=== PATIENT | male | born 1960 | race African-American/Black ===

== ENCOUNTER 2018-01-09 10:17 | Emergency (ER) | payer MEDICARE, MEDICAID ==
[2018-01-09] MEDS ORDERED: NS 0.9% 1000 ML* 1,000 ML IV ONE (10:26)
--- NOTE | 2018-01-09 10:41 | ED ---
Complex/Multi-Sys Presentation - HPI Summary HPI Summary: A 57 y/o male JOCELIN presents to [facility] c/o low blood sugar. As per triage, "patient had a low blood sugar this morning in which his right arm was not working. EMS arrived and found the sugar to be 51 and gave sugar for this. pt arrives alert and oriented without deficit. pt is on precautions as he states his apartment is infested with beg bugs, cockroaches and rats. He is trying to find new housing". According to EMS, the patient has a diabetic history along with a possible CVA history dating back to the . They stated that in the midst of him eating his meal, he was very confused and heated his dinner up 3 times. Additionally, somehow, he got out of bed and ended up laying on the floor. He was yelling for help in which his neighbors heard him. EMS believes it looks like a stroke. Furthermore, his blood sugar was 51, now it is 217. Patient has diabetes card. Body weight is 207.4. Allergic to shellfish, Sulfa drugs and Lipitor. Patient has appointment with Dr. Randle on February 14, 2018. SHx of lives in large apartment building/complex that is infested with beg bugs. - History Of Current Complaint Time Seen by Provider: 01/09/18 10:19 Hx Obtained From: Patient Onset/Duration: Sudden Onset, Lasting Hours Timing: Constant Severity Currently: None Location: Negative Aggravating Factor(s): NOTHING Alleviating Factor(s): NOTHING - Allergies/Home Medications Allergies/Adverse Reactions: Allergies Allergy/AdvReac Type Severity Reaction Status Date / Time atorvastatin [From Lipitor] Allergy Anaphylatic Verified 12/10/17 16:03 Shock iodine Allergy Anaphylatic Verified 12/10/17 16:03 Shock Sulfa (Sulfonamide Allergy Anaphylatic Verified 12/10/17 16:03 Antibiotics) Shock shellfish Allergy Anaphylatic Uncoded 12/10/17 16:03 Shock PMH/Surg Hx/FS Hx/Imm Hx Endocrine/Hematology History: Reports: Hx Diabetes, Hx Thyroid Disease - hypothyroidism Denies: Hx Systemic Lupus Erythematosus Cardiovascular History: Reports: Hx Hypertension Denies: Hx Congestive Heart Failure, Hx Pacemaker/ICD Respiratory History: Reports: Hx Asthma - juvenile Denies: Hx Chronic Obstructive Pulmonary Disease (COPD) GI History: Reports: Hx Gastrointestinal Bleed - Treated by DR Hartmann, Hx Ulcer - foot ulceration History: Reports: Hx Acute Renal Failure - 1997, Hx Dialysis - Dialysis 1987 for a few months, Hx Renal Disease - Renal Failure 1987 Musculoskeletal History: Reports: Hx Arthritis - shoulders amd hips, Other Musculoskeletal History - left foot drop dt dm Denies: Hx Rheumatoid Arthritis Sensory History: Reports: Hx Contacts or Glasses Denies: Hx Hearing Aid Opthamlomology History: Reports: Hx Contacts or Glasses Neurological History: Reports: Other Neuro Impairments/Disorders - dm neuropathy Psychiatric History: Reports: Hx Depression - 2000, Hx Post Traumatic Stress Disorder - 2000 Denies: Hx Panic Disorder - Cancer History Hx Chemotherapy: No - Surgical History Surgery Procedure, Year, and Place: History of cardiac cath 2010, Hx Anesthesia Reactions: No Infectious Disease History: Denies: Hx Hepatitis, Hx Human Immunodeficiency Virus (HIV) - would like to be tested - Family History Known Family History: Positive: Hypertension, Diabetes, Other - Lung cancern, uterine cancer - Social History Alcohol Use: Daily - 3-24 oz beers per day Substance Use Type: Reports: None Smoking Status (MU): Heavy Every Day Tobacco Smoker - 1 pack per day Review of Systems Negative: Fever Positive: Other - POSITIVE: Low-blood sugar Positive: Other - POSITIVE: Could not use right arm temporarily. All Other Systems Reviewed And Are Negative: Yes Physical Exam - Summary Physical Exam Summary: VITAL SIGNS: Reviewed. GENERAL: Patient is a well-developed and nourished male who is lying comfortable in the stretcher.Patient is not in any acute respiratory distress. HEAD AND FACE: No signs of trauma. No ecchymosis, hematomas or skull depressions. No sinus tenderness. EYES: PERRLA, EOMI x 2, No injected conjunctiva, no nystagmus. No photophobia. EARS: Hearing grossly intact. Ear canals and tympanic membranes are within normal limits. MOUTH: Oropharynx within normal limits. NECK: Supple, trachea is midline, no adenopathy, no JVD, no carotid bruit, no c- spine tenderness, neck with full ROM. No meningeal signs, no Kernig's or brudzinskis signs. CHEST: Symmetric, no tenderness at palpation LUNGS: Clear to auscultation bilaterally. No wheezing or crackles. CVS: Regular rate and rhythm, S1 and S2 present, no murmurs or gallops appreciated. ABDOMEN: Soft, non-tender. No signs of distention. No rebound no guarding, and no masses palpated. Bowel sounds are normal. EXTREMITIES: FROM in all major joints, no edema, no cyanosis or clubbing. NEURO: Alert and oriented x 3. No acute neurological deficits. Speech is normal and follows commands. SKIN: Dry and warm GCS: 15 Triage Information Reviewed: Yes Vital Signs Reviewed: Yes Diagnostics - Laboratory Result Diagrams: 01/09/18 11:09 01/09/18 11:09 Lab Statement: Any lab studies that have been ordered have been reviewed, and results considered in the medical decision making process. - Radiology CXR Radiology Interpretation Completed By: Radiologist - No radiographic evidence for acute cardiopulmonary abnormality on this portable chest x-ray. ED PHYSICIAN REVIEWED THIS RADIOLOGY REPORT. - EKG 1041 Cardiac Rate: NL - 79 BPM EKG Rhythm: Sinus Rhythm EKG Interpretation: NO ST ELEVATIONS Re-Evaluation - Re-Evaluation First Eval Re-Evaluation Time: 13:13 Change: Improved Comment: PATIENT IS FEELING MUCH BETTER. PATIENT IS ALERT AND ORIENTED X3. Complex Multi-Symp Course/Dx Assessment/Plan: This patient is a 57-year-old male who presents to the emergency department via ambulance with a chief complaint of having lethargy. Initially they noticed that the patient was confused and lethargic, a fingerstick was only 51 by EMS. EMS gave the patient dextrose and the fingerstick is now 218. The patient reports that he is feeling better. The patient is alert and oriented 3. He has no other complaints. This patient has past medical history significant for diabetes and he takes Glipizide, metformin and Januvia. He also has a history of CVA, hypothyroidism, insomnia, and asthma. Upon arrival to the emergency department the patient was placed in a cardiac cath lab manager, IV access was obtained and the patient was given IV fluids. EKG shows a sinus rhythm at [address] elevations. Has a normal RI and QTc intervals. Blood work without any significant abnormality, except for CPK of 382. pH is 7.38. Urinalysis is negative for UTI. In the ED course the patient was given IV fluids, the patient is eating and drinking and the last fingerstick is 183. The patient feels back to normal and his baseline. He is alert and oriented 3, has no neurological focal deficits. Patient will be discharged home with follow-up with primary care physician. I discussed all the findings and test results with the patient. Patient was instructed to return to the emergency room immediately if any of the symptoms return or worsens. Plan of care was discussed with the patient and understands and agrees. All questions were answered at patient satisfaction. There were no further complaints or concerns. Lung exam before discharge: CTA B/L. Good air exchange. No wheezing or crackles heard. CVS: S1 and S2 present. No murmurs appreciated. Patient is alert and oriented x 3. Patient is hemodynamically stable. Patient will be discharged home with follow up PCP in the next 2-3 days - Diagnoses Differential Diagnoses/HQI/PQRI: Metabolic Abnormality, Urinary Tract Infection , Other - Hypoglycemia, DKA, Hyperglycemia. Provider Diagnoses: Hypoglycemia Discharge - Sign-Out/Discharge Documenting (check all that apply): Patient Departure - DISCHARGE - Discharge Plan Condition: Stable Disposition: HOME Patient Education Materials: Hypoglycemia in a Person with Diabetes (ED), What to Do if Your Blood Sugar is Low (ED) Referrals: Kenrick Butler MD [Primary Care Provider] - 3 Days Additional Instructions: FOLLOW UP WITH PRIMARY CARE PHYSICIAN IN 2-3 DAYS. FOLLOW UP WITH YOUR PRIMARY CARE PROVIDER WITHIN ONE WEEK FOR HIGH BLOOD PRESSURE NOTED TODAY. RETURN TO ED FOR ANY NEW OR WORSENING SYMPTOMS. - Billing Disposition and Condition Condition: STABLE Disposition: Home - Attestation Statements Document Initiated by Sofya: Yes Documenting Scribe: Jesus Calvillo Provider For Whom Sofya is Documenting (Include Credential): Todd Robledo MD Scribe Attestation: Jesus Chow scribed for Todd Robledo MD on 01/10/18 at 1128. Scribe Documentation Reviewed: Yes Provider Attestation: The documentation as recorded by the Jesus loco accurately reflects the service I personally performed and the decisions made by me, Todd Robledo MD
[2018-01-09 11:19] LABS: ABS Basophils 0 10^3/ul (0-0.2); ABS Eosinophils 0 10^3/ul (0-0.6); ABS Lymphocytes 0.9 10^3/ul (1.0-4.8); ABS Monocytes 0.5 10^3/ul (0-0.8); ABS Neutrophils 5.4 10^3/ul (1.5-7.7); ABS Nucleated RBC 0 10^3/ul; Eosinophil % 0.3 % (0-6); Hematocrit 48 % (42-52); Hemoglobin 16.1 g/dl (14.0-18.0); Lymphocyte % 13.4 % (25-47); Mean Corpuscular HGB Conc 34 g/dl (31-36); Mean Corpuscular Hemoglobin 32 pg (27-31); Mean Corpuscular Volume 95 fL (80-94); Mean Platelet Volume 7.3 um3 (7.4-10.4); Nucleated Red Blood Cells % 0.1; Platelet Count 183 10^3/ul (150-450); Red Blood Count 5.02 10^6/ul (4.00-5.40); Red Cell Distribution Width 14 % (10.5-15); White Blood Count 6.8 10^3/ul (3.5-10.8)
[2018-01-09 11:26] LABS: INR 0.87 (0.77-1.02)
[2018-01-09 11:35] LABS: EGFR Non-African American 94.2 (>60)
--- NOTE | 2018-01-09 12:16 | RAD ---
INDICATION: Lethargy COMPARISON: Most recent comparison chest x-ray is dated April 23, 1999 and TECHNIQUE: Single AP portable view of the chest was obtained. FINDINGS: Image quality is compromised due to the relative inferiority of a portable chest x-ray. The heart and mediastinum exhibit normal size and contour. The lungs are grossly clear. There is blunting of the right costophrenic angle unchanged from the previous chest x-ray. Visualized bones are normal for the patient's age. IMPRESSION: No radiographic evidence for acute cardiopulmonary abnormality on this portable chest x-ray.
[2018-01-09 12:17] LABS: Urine Appearance Clear; Urine Blood 1+ (Negative); Urine Color Yellow; Urine Ketones Negative (Negative); Urine Protein 1+(30 mg/dL) (Negative); Urine Red Blood Cell 1+(3-5/hpf) (Absent); Urine Specific Gravity 1.013 (1.010-1.030); Urine Urobilinogen Negative (Negative); Urine White Blood Cell Trace(0-5/hpf) (Absent)
[2018-01-09 14:06] VITALS: BP 157/92
== END 2018-01-09 14:58 | disposition home or self-care (01) ==
LOC: ED 10:17
DX: E11.649 Type 2 diabetes mellitus with hypoglycemia without coma (principal); I10 Essential (primary) hypertension; F17.210 Nicotine dependence, cigarettes, uncomplicated
CPT/HCPCS: 36415; 71045; 80053; 80307; 80320; 81003; 81015; 82550; 82803; 83605; 83735; 84484; 85025; 85610; 85730; 86140; 87086; 93005; 99284; G0480

== ENCOUNTER 2018-03-20 06:28 | Inpatient (IN) | payer MEDICARE, MEDICAID ==
--- NOTE | 2018-03-20 06:33 | ED ---
HPI Chest Pain - HPI Summary HPI Summary: Pt. is a 58 y.o male who was transferred from [facility] for elevated troponin. Pt. apparently has a seafood allergy and was given a sandwich in [facility] and had an allergic reaction. Pt. was reportedly given PO benadryl, pepcid and decadron and transferred for admission for elevated troponin. No report was provided by EMS in transportation. Pt. was not given epi. When pt. arrived to our ED he had significant edema to posterior pharynx and was stridorous and struggling to breath. History limited at this time secondary to pt.'s condition. Symptoms are severe in severity. No current modifying factors. - History of Current Complaint Time Seen by Provider: 03/20/18 06:31 Hx Obtained From: Patient, Medical Records - Allergy/Home Medications Allergies/Adverse Reactions: Allergies Allergy/AdvReac Type Severity Reaction Status Date / Time atorvastatin [From Lipitor] Allergy Anaphylatic Verified 12/10/17 16:03 Shock iodine Allergy Anaphylatic Verified 12/10/17 16:03 Shock Sulfa (Sulfonamide Allergy Anaphylatic Verified 12/10/17 16:03 Antibiotics) Shock shellfish Allergy Anaphylatic Uncoded 12/10/17 16:03 Shock PMH/Surg Hx/FS Hx/Imm Hx Previously Healthy: Yes Endocrine/Hematology History: Reports: Hx Diabetes, Hx Thyroid Disease - hypothyroidism Denies: Hx Systemic Lupus Erythematosus Cardiovascular History: Reports: Hx Hypertension Denies: Hx Congestive Heart Failure, Hx Pacemaker/ICD Respiratory History: Reports: Hx Asthma - juvenile Denies: Hx Chronic Obstructive Pulmonary Disease (COPD) GI History: Reports: Hx Gastrointestinal Bleed - Treated by DR Hartmann, Hx Ulcer - foot ulceration History: Reports: Hx Acute Renal Failure - 1997, Hx Dialysis - Dialysis 1987 for a few months, Hx Renal Disease - Renal Failure 1987 Musculoskeletal History: Reports: Hx Arthritis - shoulders amd hips, Other Musculoskeletal History - left foot drop dt dm Denies: Hx Rheumatoid Arthritis Sensory History: Reports: Hx Contacts or Glasses Denies: Hx Hearing Aid Opthamlomology History: Reports: Hx Contacts or Glasses Neurological History: Reports: Other Neuro Impairments/Disorders - dm neuropathy Psychiatric History: Reports: Hx Depression - 2000, Hx Post Traumatic Stress Disorder - 2000 Denies: Hx Panic Disorder - Cancer History Hx Chemotherapy: No - Surgical History Surgery Procedure, Year, and Place: History of cardiac cath 2011, Hx Anesthesia Reactions: No Infectious Disease History: Denies: Hx Hepatitis, Hx Human Immunodeficiency Virus (HIV) - would like to be tested - Family History Known Family History: Positive: Hypertension, Diabetes, Other - Lung cancern, uterine cancer - Social History Occupation: Disabled Lives: With Family Alcohol Use: Daily Alcohol Amount: three 24 ounce beers Substance Use Type: Reports: None Smoking Status (MU): Heavy Every Day Tobacco Smoker Review of Systems Positive: Other - throat swelling Positive: Shortness Of Breath All Other Systems Reviewed And Are Negative: Yes Physical Exam Triage Information Reviewed: Yes Vital Signs Reviewed: Yes Appearance: Positive: Ill-Appearing - Pt. sitting up in bed, voice is raspy, difficulty breathing Skin: Positive: Warm, Dry Head/Face: Positive: Normal Head/Face Inspection Eyes: Positive: Normal, EOMI ENT: Positive: Other - Oral pharynx is significantly edematous Neck: Positive: Supple Respiratory/Lung Sounds: Positive: Other - Mild diffuse wheeze Cardiovascular: Positive: RRR Neurological: Positive: Normal, CN Intact II-III Psychiatric: Positive: Anxious AVPU Assessment: Alert - Luciano Coma Scale Best Eye Response: 4 - Spontaneous Best Motor Response: 6 - Obeys Commands Best Verbal Response: 5 - Oriented Coma Scale Total: 15 Diagnostics - Laboratory Result Diagrams: 03/20/18 06:50 03/20/18 06:50 Lab Statement: Any lab studies that have been ordered have been reviewed, and results considered in the medical decision making process. Chest Pain Course/Dx - Course Assessment/Plan: Pt. presenting as a transfer from [facility] with anaphylactic reaction to possible shellfish. VS are stable. Pt. with marked edema to posterior pharynx. Pt. examed immediately by Dr. Gayle as well. Pt. reportedly received PO benadryl, decadron and pepcid in [facility]. IM epi, IV bendadryl and pepcid given here. Dr. Gayle concerned for pt.'s airway. Respiratory at bedside. Anesthesiology called and is at bedside. Please see Dr. Gayle's addendum for care and management. Plan to admit to ICU. - Diagnoses Provider Diagnoses: Anaphylactic reaction Discharge - Sign-Out/Discharge Documenting (check all that apply): Patient Departure - Discharge Plan Condition: Critical Disposition: ADMITTED TO [facility] Referrals: Oh Lynne MD [Primary Care Provider] - - Billing Disposition and Condition Condition: CRITICAL Disposition: Admitted to [facility]
[2018-03-20] MEDS ORDERED: diPHENhydraMINE IV* 50 MG/ML 1 ml VIAL (BENADRYL) IV ONE (06:36)
[2018-03-20] MEDS ORDERED: EPINEPHRINE 1 MG/ML 1 ML VIAL IM ONE ×2 (06:37→06:52)
[2018-03-20] MEDS ORDERED: EPINEPHRINE 1 MG/ML 1 ML VIAL ONE ×2 (06:42→06:52)
[2018-03-20] MEDS ORDERED: Famotidine IV* 10 MG/ML 2 ML (20 mg) ONE (06:42)
[2018-03-20] MEDS ORDERED: Famotidine IV * 20 MG in NS 0.9% 100 ML* 100 ML IVPB ONE (06:42)
[2018-03-20] MEDS ORDERED: diPHENhydraMINE IV* 50 MG/ML 1 ml VIAL (BENADRYL) ONE (06:42)
[2018-03-20] MEDS ORDERED: Dexamethasone IV* 4 MG/ML 5 ML VIAL (20 MG) IVPB ONE (06:49)
[2018-03-20] MEDS ORDERED: EPINEPHrine,Rac 2.25% NEB.SOL* 0.5 ML ONE (06:54)
[2018-03-20 06:59] LABS: ABS Basophils 0.1 10^3/ul (0-0.2); ABS Eosinophils 0.1 10^3/ul (0-0.6); ABS Lymphocytes 2.2 10^3/ul (1.0-4.8); ABS Monocytes 0.4 10^3/ul (0-0.8); ABS Neutrophils 5.1 10^3/ul (1.5-7.7); ABS Nucleated RBC 0 10^3/ul; Eosinophil % 1.2 %; Hematocrit 49 % (42-52); Hemoglobin 16.3 g/dl (14.0-18.0); Mean Corpuscular HGB Conc 34 g/dl (31-36); Mean Corpuscular Hemoglobin 32 pg (27-31); Mean Corpuscular Volume 97 fL (80-94); Mean Platelet Volume 7.2 fL (7.4-10.4); Nucleated Red Blood Cells % 0.1; Platelet Count 180 10^3/ul (150-450); Red Blood Count 5.03 10^6/ul (4.00-5.40); Red Cell Distribution Width 15 % (10.5-15); White Blood Count 7.9 10^3/ul (3.5-10.8)
[2018-03-20] MEDS ORDERED: Propofol* 100 ML ONE ×2 (06:59→08:57)
[2018-03-20 07:17] LABS: EGFR Non-African American 86.7 (>60)
[2018-03-20] MEDS ORDERED: Midazolam* 1 MG/ML 10 ML VIAL (10 MG) ONE (07:20)
[2018-03-20] MEDS ORDERED: KETAMINE HCL* 50 MG/ML 10 ML VIAL IV ONE (07:42)
[2018-03-20] MEDS ORDERED: Midazolam* 1 MG/ML 10 ML VIAL (10 MG) IV ONE (07:42)
[2018-03-20] MEDS ORDERED: Glycopyrrolate IV* 0.2 MG/ML 1 ML VIAL IV SLOW PU ONE (07:45)
[2018-03-20] MEDS ORDERED: EPINEPHrine,Rac 2.25% NEB.SOL* 0.5 ML INH ONE (07:48)
[2018-03-20] MEDS ORDERED: fentaNYL* 50 MCG/ML 2 ML VIAL (100 MCG VIAL) IV SLOW PU ONE (07:50)
[2018-03-20] MEDS ORDERED: Glycopyrrolate IV* 0.2 MG/ML 1 ML VIAL ONE (07:51)
[2018-03-20] MEDS ORDERED: Propofol* 10 MG/ML 20 ML BTL ONE (07:51)
[2018-03-20] MEDS ORDERED: Albuterol/Ipratropium NEB.SOL* Albuterol 2.5 MG/Ipratropium 0.5 MG 3 ML INH PRN (08:17)
[2018-03-20] MEDS ORDERED: NS 0.9% 1000 ML* 1,000 ML IV ONE (08:41)
[2018-03-20] MEDS ORDERED: Dextrose 50% Syringe 50 ML* 25 GM/50 ML SYRINGE IV PUSH PRN (09:20)
[2018-03-20] MEDS: Propofol* 100 ML IV SCH ×4 (09:21→21:11)
[2018-03-20] MEDS ORDERED: methylPREDNISolone SOD 40 MG* 1 ML VIAL IV SCH (10:00)
[2018-03-20] MEDS ORDERED: Pantoprazole IV* 40 MG IV SCH (10:00)
--- NOTE | 2018-03-20 11:13 | CONSULT ---
Consult Consult: Consultation Note -- Critical Care Requesting Physician: Dr Schroeder Reason for consult: angioedema Limitations in history/physical: intubated Date of consult: 03/20/2018 HPI: 58y M w/pmhx of CAD, DM, Ascending Aortic Aneurysm with AI, hypothyroidism , HTN, asthma, h/o of distant GI bleed, Depression/PTSD; patient came to [place] ER for complaints of Chest pain and SOB on 03/19. During Er evaluation he was found to have trop 0.55, without acute EKG changes consistent with AMI. 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 While in [place] he may have eating a contaminated/ wrong food with seafood it seems and developed an allergic reaction, where he was treated with IV pepcid/benadryl/steroids. He was deemed stable and transferred via EMS to [facility]. On arrival to [facility] he was short of breath, in distress, stridorous with edema in posterior pharynx. Given emergent nature he was given medications and intubated for angioedema and airway compromise by anesthesiology. Post procedure placed on propofol, given decadrone/IM epi/ pepcid again ER. BP has remained stable but dropped a bit after initiation of sedation. He is currently intubated in the ICU, sedated, but awakens to voice/light touch. BP stable, not tachycardic. warm ext. no noted lip swelling, unable to visualize posterior pharyngx. He has a known Ascending Aortic Root Aneurysm, last noted to be 5.8cm in size by COLBY associated with Aortic regurgitation. He was being referred for surgical evaluation for the aneurysm and AI. ROS: unable to obtain 2/2 to intubated state PMHx: CAD, DM, Ascending Aortic Aneurysm with AI, hypothyroidism, HTN, asthma, h /o of distant GI bleed, Depression/PTSD, CVA PSHx: cardiac cath Family History: DM, HTN, lung ca Social History: Alcohol-daily 3 24oz beers, Smoking-active 1ppd, Drug use- unknown Allergies: Allergies Allergy/AdvReac Type Severity Reaction Status Date / Time atorvastatin [From Lipitor] Allergy Anaphylatic Verified 12/10/17 16:03 Shock iodine Allergy Anaphylatic Verified 12/10/17 16:03 Shock Sulfa (Sulfonamide Allergy Anaphylatic Verified 12/10/17 16:03 Antibiotics) Shock shellfish Allergy Anaphylatic Uncoded 12/10/17 16:03 Shock Home Medications: Folic Acid TAB* [Folvite TAB*] 1 mg PO DAILY 08/26/17 [History Confirmed ] Gabapentin CAP(*) [Neurontin 300 CAP(*)] 300 mg PO TID 08/26/17 [History Confirmed 01/11/18] Levothyroxine TAB* [Synthroid TAB*] 125 mcg PO DAILY 08/26/17 [History Confirmed 01/11/18] Metoprolol Succinate XL TAB* [Toprol XL TAB*] 50 mg PO DAILY 08/26/17 [History Confirmed 01/11/18] Simvastatin [Zocor] 20 mg PO DAILY 08/26/17 [History Confirmed 01/11/18] Sitagliptin Phosphate [Januvia] 100 mg PO DAILY 08/26/17 [History Confirmed ] amLODIPine TAB* [Norvasc 5 mg TAB*] 10 mg PO DAILY 08/26/17 [History Confirmed 01/11/18] traZODone TAB* [Desyrel TAB*] 150 mg PO BEDTIME 08/26/17 [History Confirmed 06/06] Albuterol 2.5MG/3ML (0.083%)* [Ventolin 2.5 MG/3 ML NEB.ASIM*] 2.5 mg INH Q6H PRN 12/10/17 [History Confirmed 01/11/18] Albuterol inh POWDER (NF) [Proair Respiclick] 2 puff INH QID PRN 12/10/17 [ History Confirmed 01/11/18] Aspirin TAB* [Aspirin 325 MG TAB*] 325 mg PO DAILY 12/10/17 [History Confirmed 01/11/18] Cetirizine* [ZyrTEC 10 MG TAB*] 10 mg PO DAILY 12/10/17 [History Confirmed 01/11] EPINEPHrine [Epipen 2-Delon] 0.3 mg IM ONCE PRN 12/10/17 [History Confirmed ] Econazole 1% CREAM (NF) [Econazole 1 % CREAM (NF)] 1 applic TOPICAL BID PRN [History Confirmed 01/11/18] Escitalopram Oxalate [Lexapro 20 mg] 20 mg PO DAILY 12/10/17 [History Confirmed 01/11/18] Fluocinonide 0.05% CM (NF) [Lidex 0.05% CREAM (NF)] 1 applic TOPICAL TID PRN [History Confirmed 01/11/18] Ipratropium Br (Nf)0.03% Nasal [Ipratropium [place]] 2 spray BOTH NARES .3- 4XDAILY MAX 4DAYS PRN 12/10/17 [History Confirmed 01/11/18] Loperamide CAP* [Imodium CAP*] 2 mg PO Q6H PRN 12/10/17 [History Confirmed 01/11] Meloxicam 15 mg PO DAILY 12/10/17 [History Confirmed 01/18/18] Nitroglycerin [Nitrostat] 0.3 mg SL .Q5MIN UP TO 3X PRN 12/10/17 [History Confirmed 01/11/18] Leighton-3 Acid Ethyl Esters [Lovaza 1 gm] 2 cap PO BID 12/10/17 [History Confirmed 01/11/18] Omeprazole CAP* [Prilosec CAP* 20 MG] 20 mg PO BID 12/10/17 [History Confirmed 01/18/18] Quinapril HCl 20 mg PO DAILY 12/10/17 [History Confirmed 01/11/18] Tizanidine HCl [Zanaflex] 4 mg PO BID 12/10/17 [History Confirmed 01/11/18] Zolpidem TAB* [Ambien TAB*] 10 mg PO BEDTIME 12/10/17 [History Confirmed ] glipiZIDE TAB* [Glucotrol TAB*] 5 mg PO BID 12/10/17 [History Confirmed 01/11/18 ] metFORMIN* [Glucophage 1000 MG TAB *] 1,000 mg PO BID 12/10/17 [History Confirmed 01/11/18] Calcium Carbonate/Vitamin D3 [Calcium 500+D 500-200 mg-Unit] 1 tab PO DAILY [History Confirmed 01/11/18] Sildenafil Citrate [Viagra] 100 mg PO DAILY PRN 01/11/18 [History Confirmed ] Tele: NSR Vitals: Vital Signs Temp 96.8 F 03/20/18 11:01 Pulse 74 03/20/18 11:01 Resp 15 03/20/18 11:00 BP 115/76 03/20/18 11:00 Pulse Ox 98 03/20/18 11:01 Intake & Output 03/19/18 03/20/18 03/20/18 18:59 06:59 18:59 Output Total 115 Balance -115 Weight 95.708 kg 94.6 kg Output: Chaudhary 115 O2/Vent: AC 40%, rate 14 Infusions: propofol, ns 60cc/hr Current Medications: Albuterol/Ipratropium (Duoneb (Albuterol 2.5 Mg/Ipratropium 0.5 Mg)) 1 neb INH [id number] AWAKE PRN PRN Reason: sob/wheexing Dextrose (D50w Syringe 50 Ml*) 12.5 gm IV PUSH .FOR FS < 60 - SS PRN PRN Reason: FS < 60 Diphenhydramine HCl (Benadryl Liq*) 25 mg NG TUBE Q6HR PAIGE Stop: 03/21/18 06:01 Famotidine (Pepcid Iv*) 20 mg IV SLOW PU BID PAIGE Propofol (Diprivan*) 100 mls @ 43.069 mls/hr IV .(Initial Rate) PAIGE; Protocol Last Admin: 03/20/18 09:21 Dose: 34.1 mls/hr Dexmedetomidine HCl 400 mcg/ (Sodium Chloride) 100 mls @ 11.82 mls/hr IVPB .( Initial Rate) PAIGE; Protocol Insulin Human Lispro (Humalog*) 0 units SUBCUT FS Q4 ICU PAIGE; Protocol Methylprednisolone Sodium Succinate (Solu-Medrol 40 Mg) 40 mg IV Q8H PAIGE Physical Exam: General: intubated, sedated, no distress, no diaphoresis Head: normocephalic, atraumatic HEENT: no pallor, no icterus, moist mucous membranes Neck: soft, supple, no jvd CVS: normal rate, regular, no murmur Resp: bilateral air entry, no rhales, no wheeze, no rhonchi, no acc muscle use Abdomen: soft, nontender, nondistended, bowel sounds present Ext: pulses+, warm, no edema Skin: intact Neuro: sedated, intubated Labs: Laboratory Results - last 24 hr 03/20/18 03/20/18 03/20/18 06:50 06:50 06:50 WBC 7.9 RBC 5.03 Hgb 16.3 Hct 49 MCV 97 H MCH 32 H MCHC 34 RDW 15 Plt Count 180 MPV 7.2 L Neut % (Auto) 64.7 Lymph % (Auto) 28.0 [place]ell % (Auto) 5.4 Eos % (Auto) 1.2 Baso % (Auto) 0.7 Absolute Neuts (auto) 5.1 Absolute Lymphs (auto) 2.2 Absolute Monos (auto) 0.4 Absolute Eos (auto) 0.1 Absolute Basos (auto) 0.1 Absolute Nucleated RBC 0 Nucleated RBC % 0.1 APTT 32.9 Sodium 136 Potassium 3.9 Chloride 101 Carbon Dioxide 28 Anion Gap 7 BUN 20 Creatinine 0.90 Est GFR ( Amer) 104.9 Est GFR (Non-Af Amer) 86.7 BUN/Creatinine Ratio 22.2 H Glucose 124 H POC Glucose (mg/dL) Calcium 9.3 Total Bilirubin 1.10 H AST 32 ALT 36 Alkaline Phosphatase 62 Troponin I 0.03 B-Natriuretic Peptide Total Protein 7.2 Albumin 4.4 Globulin 2.8 Albumin/Globulin Ratio 1.6 03/20/18 03/20/18 03/20/18 06:50 09:43 09:47 WBC RBC Hgb Hct MCV MCH MCHC RDW Plt Count MPV Neut % (Auto) Lymph % (Auto) [place]ell % (Auto) Eos % (Auto) Baso % (Auto) Absolute Neuts (auto) Absolute Lymphs (auto) Absolute Monos (auto) Absolute Eos (auto) Absolute Basos (auto) Absolute Nucleated RBC Nucleated RBC % APTT Sodium Potassium Chloride Carbon Dioxide Anion Gap BUN Creatinine Est GFR ( Amer) Est GFR (Non-Af Amer) BUN/Creatinine Ratio Glucose POC Glucose (mg/dL) 208 H Calcium Total Bilirubin AST ALT Alkaline Phosphatase Troponin I 0.02 B-Natriuretic Peptide 18 Total Protein Albumin Globulin Albumin/Globulin Ratio Imaging: cxr 03/20 - ngt in place, no infiltrates Assessment: 58y M w/pmhx of CAD, DM, Ascending Aortic Aneurysm with AI, hypothyroidism, HTN, asthma, h/o of distant GI bleed, Depression/PTSD; patient came to [place] ER for complaints of Chest pain and SOB on 03/19. During Er evaluation he was found to have trop 0.55, without acute EKG changes consistent with AMI. 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 While in [place] he may have eating a contaminated/wrong food with seafood it seems and developed an allergic reaction , where he was treated with IV pepcid/benadryl/steroids. He was deemed stable and transferred via EMS to [facility]. On arrival to [facility] he was short of breath, in distress, stridorous with edema in posterior pharynx. Given emergent nature he was given medications and intubated for angioedema and airway compromise by anesthesiology. -Acute Respiratory Failure, unspecified 2/2 to angioedema, intubated for airway protection -Anaphylaxis/Angioedema 2/2 to seafood -Chest pain -Ascending Thoracic aortic aneurysm with associated AI CAD DM Depression/PTSD Plan: Neuro- maintain sedation with propofol; added precedex also. delirium prec. daily sedation vacation. CVS- BP stable. HR stable. IVF NS infusion. Trop neg x2, EKG without changes. Cardiology consult to see. Known Asc Aneurysm with AI. TTE to further eval. Once resp status stable, plan for further surgical intervention soon? Overall euvolemic, hold antihypertensives currently. Angioedema likely not ACEI, was given seafood. no hypotension. Resp- intubated, maintain mechanical ventilation. IV solumedrol, IV pepcid, PO benadryl q6h x4 doses. no Epi indicated at this time. BP stable. will reassess tomorrow, may need ENT to eval upper airway. will need leak test prior to extubation. CXR post intubation noted. ID- afebrile. wbc normal. no infectious process. no abx indicated. GI- NPO, ogt+. GI proph. Renal- Cr okay. K okay, no acidosis. NS infusion. chaudhary+ Heme- hg normal, plt normal. DVT proph. Endo- fingerstick q4h, lispro q4h. Musculsk- pressure ulcer prophylaxis. Bedrest. Wounds- none Nutrition- NPO DVT prophylaxis: scd GI prophylaxis: h2b Central Line: no Arterial Line: no Chaudhary Cathetor: yes Disposition: ICU Code Status: full code Total Critical Care time is 40 minutes, excluding procedures/teaching Luca Mora MD [employer] (Electronically Signed)
[2018-03-20] MEDS: methylPREDNISolone SOD 40 MG* 1 ML VIAL IV SCH ×2 (11:36→18:21)
[2018-03-20] MEDS: Insulin LISPRO* 1 UNITS UNIT SUBCUT SCH ×3 (12:18→20:24)
[2018-03-20] MEDS: Dexmedetomidine* 400 MCG in NS 0.9% 100 ML* 96 ML IVPB SCH ×2 (12:20→18:24)
[2018-03-20] MEDS: diPHENhydraMINE LIQ* 12.5 MG/5 ML UDC NG TUBE SCH ×2 (12:20→18:21)
[2018-03-20] MEDS: NS 0.9% 1000 ML* 1,000 ML IV SCH (12:41)
--- NOTE | 2018-03-20 13:33 | HP ---
CC: Dr. Lynne; Dr. Mora; Dr. Delgadillo * HISTORY AND PHYSICAL: DATE OF ADMISSION: 03/20/18 TIME OF ADMISSION: 09:00 a.m. CHIEF COMPLAINT: Chest pain. HISTORY OF PRESENT ILLNESS: This is a 58-year-old man with history of thoracic aortic aneurysm, coronary artery disease, and aortic insufficiency who presented to the [place] ED with chest pain. In the [place] ED, his troponin was 0.05, so he was transferred to [facility] for Cardiology evaluation given his history. Before he left the [place] ED, he was given a sandwich and began to immediately feel like his throat was closing. He has a history of anaphylaxis to shellfish, so in the [place] ED he was given Pepcid and steroids and he was also given Benadryl and transferred to our ED. By the time he arrived to our ED , he was stridorous and Anesthesia was called for intubation. He was reported to be a difficult intubation with a very narrow airway and required a 6.0 tube, and at this time, he is intubated and sedated when I come to see him in the ED. The history is mostly obtained from records as the patient is sedated. I have attempted to reach the emergency contact who is his and there is no connection on the number listed. PAST MEDICAL HISTORY: Type 2 diabetes; thoracic aortic aneurysm, which is 5.8 cm at the root; coronary artery disease; hyperlipidemia; hypertension; asthma; aortic valve insufficiency; posttraumatic stress disorder; obesity; tobacco use. PAST SURGICAL HISTORY: Carpal tunnel release, tonsillectomy, left heart cath, colonoscopy, and polypectomy. SOCIAL HISTORY: From what I can obtain from Dr. Randle's note a few weeks ago, he lives at the [facility]. He is from his . He has 2 sons and 2 daughters. He is a current smoker and currently drinks 5 beers per day. REVIEW OF SYSTEMS: Unable to be obtained due to sedation. PHYSICAL EXAMINATION GENERAL: Obese, intubated, and sedated, middle-aged man, who is in no distress. He is well sedated and does not respond to any stimuli. VITAL SIGNS: Temperature 98.4, heart rate 100, respiratory rate 20, pulse ox 98 % on 50% FiO2, and blood pressure 154/85. HEENT: His pupils are 1 mm bilaterally. A 6.0 tube is at 22 cm at the lips. His tongue is obviously swollen. His oral mucosa is moist. NECK: No JVP. No adenopathy. LUNGS: Clear bilaterally. CHEST: Regular rate and rhythm. No murmurs. ABDOMEN: Obese, soft, nontender, and does not appear distended. EXTREMITIES: He has no edema. His pulses are 1+ bilaterally. He has a superficial skin tear on the lateral left calf. : A Asher catheter is draining clear yellow urine. DIAGNOSTIC STUDIES/LAB DATA: White blood cells 7.9, hemoglobin 16.3, platelets 180. PTT is 32.9. Sodium 136, potassium 3.9, chloride 101, bicarb 28 , creatinine 0.9, glucose 124, bili 1.1, troponin 0.03. Chest x-ray showed cardiomegaly and an NG tube in the distal esophagus in the region of the GE junction and the EKG shows sinus rhythm at 82, normal axis, normal intervals, no chamber hypertrophy, Q waves in III and aVF, and no ST or T -wave changes. The Q waves are unchanged from a prior EKG. ASSESSMENT AND PLAN: This is a 58-year-old man with history of coronary artery disease, aortic insufficiency, and a thoracic aortic aneurysm, who presented to [place] [facility] with chest pain and while in [place] ED had an allergic reaction to a sandwich and when he arrived to our ED, anaphylaxis was diagnosed and he required intubation. 1. Neurologic: He is appropriately sedated on a propofol drip. He is normotensive at the time on the propofol drip, but this can be weaned for daily waking. He also has a history of moderate alcohol abuse, so he should be monitored closely for EtOH abuse. 2. Respiratory: He has been dependent respiratory failure secondary to anaphylaxis. He has received 0.3 mg IM epinephrine 1 mg/mL twice in the emergency department. His most recent vital recording was normotensive, however if he becomes hypotensive he may need more epinephrine, but at this time , I will hold off on any more epinephrine. 3. Cardiovascular: His initial presentation was for chest pain. Given his history of thoracic aortic aneurysm, he may warrant a CTA once he is stabilized. I have consulted Dr. Delgadillo given his cardiac history, his presentation for chest pain, and the requirement of epinephrine administration. I am trending his troponins. His EKG has no ischemic changes. My greater concern would be an aortic dissection. He appeared euvolemic. I am monitoring him on telemetry. 4. GI: An orogastric tube is in place. I am putting him on GI prophylaxis. 5. Renal: A Asher catheter is in place, so his renal function is within normal limits. 6. Infectious Disease: I see no evidence of an infection. 7. Endocrine: He is diabetic and on p.o. diabetic medications. I am putting him on fingersticks and insulin sliding scale. 8. Hematology: Hemoglobin and platelets are within normal limits. I am putting him on Lovenox for DVT prophylaxis. 9. Social: I cannot reach his . He lives at the [facility]. I am entering a Social Work consult to find family. [id number]/CPS #: [id number] ROBINSON
[2018-03-20] MEDS: Chlorhexidine MOUTHWASH 0.12%* 15 ML UDC TOPICAL SCH ×2 (16:35→21:10)
--- NOTE | 2018-03-20 16:38 | CONSULT ---
Subjective Date of Service: 03/20/18 Interval History: Date of admission and consult 03/20/2018 Service: Hospitalist PMD: Dr. Lynne Director Of District Office; Dr. Randle. CC: Chest pain Reason for consult: Chest pain HPI Mr. Kelsey is a 58 year old man with a history as below who was told 10 days ago he would need surgery (Dr. Burden, [facility]) to repair a dilated aortic root that had being serially followed. At that time he was asymptomatic. Patient is currently intubated and all history taken from patients cardiologists notes, [facility] ER records and this admission [facility] records. He had apparently been very anxious about the surgery and had presented to [facility] ER with 2 days of left sided sharp chest pain that was reportedly reproducible by mouth movement and touch. No back pain or other symptoms were noted. A CT scan showed a 5.5 cm aortic root (similar to recent) without rupture. He had a minimally elevated troponin of 0.055 (cut-off normal is 0.045 on that assay) and ruled with a repeat of 0.057 but only a 2 hour interval. He was going to be transferred here for further evaluation. He was apparently given seafood in their ER which caused an anaphylactic reaction. He was emergently intubated in our ER for respiratory failure and is critically ill medication list reconciled verbally and reviewed on 03/11/18, [facility] Allergies: Sulfa 02/07/07 - hives shellfish sensity 02/07/07 - ? 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 Father: [place] at 47. Mother: due to GSW- (age 52 Years). Brother 1: sarcoidosis. Brother 2: twin brother ruptured aneurysm (ventricular) age 43. 3 surviving brothers, 1 older sister in good health SH: Marital: .Lives With: Alone - in homeless skilled nursing, [facility]. In 2018 living in rooming house in [place]..Occupation: Unemployed.2 sons, 2 daughters - one daughter in 2018 in Internal Medical training in [place] Personal Habits: Smoking: Patient is a current smoker, smokes every day - smokes 10 cigarettes per day .Cigarette Use: Heavy tobacco smoker (more than 10 cigarettes/day) - 1 pack per day.Alcohol: consumes 4-5 beers per day.Drug Use: Denies Drug Use.Daily Caffeine: 1-2 cups of coffee a day.Exercise Type: Does not exercise - walks occasionally. Medications Active Medications: Albuterol/Ipratropium (Duoneb (Albuterol 2.5 Mg/Ipratropium 0.5 Mg)) 1 neb INH [id number] AWAKE PRN PRN Reason: sob/wheexing Chlorhexidine Gluconate (Peridex Mouth Wash 0.12%*) 15 ml TOPICAL Q4H [facility] Last Admin: 03/20/18 16:35 Dose: 15 ml Dextrose (D50w Syringe 50 Ml*) 12.5 gm IV PUSH .FOR FS < 60 - SS PRN PRN Reason: FS < 60 Diphenhydramine HCl (Benadryl Liq*) 25 mg NG TUBE Q6HR PAIGE Stop: 03/21/18 06:01 Last Admin: 03/20/18 12:20 Dose: 25 mg Famotidine (Pepcid Iv*) 20 mg IV SLOW PU BID PAIGE Propofol (Diprivan*) 100 mls @ 43.069 mls/hr IV .(Initial Rate) [facility]; Protocol Last Admin: 03/20/18 11:55 Dose: 34.1 mls/hr Dexmedetomidine HCl 400 mcg/ (Sodium Chloride) 100 mls @ 11.82 mls/hr IVPB Q8H [facility]; Protocol Last Admin: 03/20/18 12:20 Dose: 11.82 mls/hr Sodium Chloride (Ns 0.9% 1000 Ml*) 1,000 mls @ 60 mls/hr IV .PER RATE PAIGE Last Admin: 03/20/18 12:41 Dose: 60 mls/hr Insulin Human Lispro (Humalog*) 0 units SUBCUT FS Q4 ICU [facility]; Protocol Last Admin: 03/20/18 16:36 Dose: 2 units Methylprednisolone Sodium Succinate (Solu-Medrol 40 Mg) 40 mg IV Q8H PAIGE Last Admin: 03/20/18 11:36 Dose: 40 mg Home Medications: Folic Acid TAB* [Folvite TAB*] 1 mg PO DAILY 08/26/17 [History Confirmed ] Gabapentin CAP(*) [Neurontin 300 CAP(*)] 300 mg PO TID 08/26/17 [History Confirmed 01/11/18] Levothyroxine TAB* [Synthroid TAB*] 125 mcg PO DAILY 08/26/17 [History Confirmed 01/11/18] Metoprolol Succinate XL TAB* [Toprol XL TAB*] 50 mg PO DAILY 08/26/17 [History Confirmed 01/11/18] Simvastatin [Zocor] 20 mg PO DAILY 08/26/17 [History Confirmed 01/11/18] Sitagliptin Phosphate [Januvia] 100 mg PO DAILY 08/26/17 [History Confirmed ] amLODIPine TAB* [Norvasc 5 mg TAB*] 10 mg PO DAILY 08/26/17 [History Confirmed 01/11/18] traZODone TAB* [Desyrel TAB*] 150 mg PO BEDTIME 08/26/17 [History Confirmed 06/06] Albuterol 2.5MG/3ML (0.083%)* [Ventolin 2.5 MG/3 ML NEB.ASIM*] 2.5 mg INH Q6H PRN 12/10/17 [History Confirmed 01/11/18] Albuterol inh POWDER (NF) [Proair Respiclick] 2 puff INH QID PRN 12/10/17 [ History Confirmed 01/11/18] Aspirin TAB* [Aspirin 325 MG TAB*] 325 mg PO DAILY 12/10/17 [History Confirmed 01/11/18] Cetirizine* [ZyrTEC 10 MG TAB*] 10 mg PO DAILY 12/10/17 [History Confirmed 01/11] EPINEPHrine [Epipen 2-Delon] 0.3 mg IM ONCE PRN 12/10/17 [History Confirmed ] Econazole 1% CREAM (NF) [Econazole 1 % CREAM (NF)] 1 applic TOPICAL BID PRN [History Confirmed 01/11/18] Escitalopram Oxalate [Lexapro 20 mg] 20 mg PO DAILY 12/10/17 [History Confirmed 01/11/18] Fluocinonide 0.05% CM (NF) [Lidex 0.05% CREAM (NF)] 1 applic TOPICAL TID PRN [History Confirmed 01/11/18] Ipratropium Br (Nf)0.03% Nasal [Ipratropium [place]] 2 spray BOTH NARES .3- 4XDAILY MAX 4DAYS PRN 12/10/17 [History Confirmed 01/11/18] Loperamide CAP* [Imodium CAP*] 2 mg PO Q6H PRN 12/10/17 [History Confirmed 01/11] Meloxicam 15 mg PO DAILY 12/10/17 [History Confirmed 01/18/18] Nitroglycerin [Nitrostat] 0.3 mg SL .Q5MIN UP TO 3X PRN 12/10/17 [History Confirmed 01/11/18] [place]-3 Acid Ethyl Esters [Lovaza 1 gm] 2 cap PO BID 12/10/17 [History Confirmed 01/11/18] Omeprazole CAP* [Prilosec CAP* 20 MG] 20 mg PO BID 12/10/17 [History Confirmed 01/18/18] Quinapril HCl 20 mg PO DAILY 12/10/17 [History Confirmed 01/11/18] Tizanidine HCl [Zanaflex] 4 mg PO BID 12/10/17 [History Confirmed 01/11/18] Zolpidem TAB* [Ambien TAB*] 10 mg PO BEDTIME 12/10/17 [History Confirmed ] glipiZIDE TAB* [Glucotrol TAB*] 5 mg PO BID 12/10/17 [History Confirmed 01/11/18 ] metFORMIN* [Glucophage 1000 MG TAB *] 1,000 mg PO BID 12/10/17 [History Confirmed 01/11/18] Calcium Carbonate/Vitamin D3 [Calcium 500+D 500-200 mg-Unit] 1 tab PO DAILY [History Confirmed 01/11/18] Sildenafil Citrate [Viagra] 100 mg PO DAILY PRN 01/11/18 [History Confirmed ] Review of Systems - Measurements Intake and Output: Intake and Output Last 24 Hours 03/18/18 03/19/18 03/20/18 03/21/18 06:59 06:59 06:59 06:59 Intake Total 517 Output Total 525 Balance -8 Weight 211 lb 208 lb 8.917 oz Intake: IV Fluids 137 NS 137 Medicated IV 30 Precedex 30 Asher Irrigate Amount 350 Output: Asher 525 - Review of Systems Review of Systems Statement: unable to obtain due to mental status Objective Vital Signs: Temp Pulse Resp BP Pulse Ox 96.8 F 54 14 143/88 99 03/20/18 16:16 03/20/18 16:16 03/20/18 16:00 03/20/18 16:15 03/20/18 16:16 Oxygen Devices in Use Now: Endotracheal Tube Appearance: intubated, sedated Ears/Nose/Mouth/Throat: Clear Oropharnyx, Mucous Membranes Moist Neck: NL Appearance and Movements; NL JVP, Trachea Midline Respiratory: Symmetrical Chest Expansion and Respiratory Effort, Clear to Auscultation Cardiovascular: NL Sounds; No Murmurs; No JVD, RRR, No Edema Abdominal: NL Sounds; No Tenderness; No Distention Extremities: No Edema Skin: No Rash or Ulcers Neurological: - - sedated, not responsive Laboratory Results: 03/20/18 06:50 03/20/18 06:50 APTT 32.9 seconds (26.0-36.3) 03/20/18 06:50 Total Bilirubin 1.10 mg/dL (0.2-1.0) H 03/20/18 06:50 AST 32 U/L (13-39) 03/20/18 06:50 ALT 36 U/L (7-52) 03/20/18 06:50 Alkaline Phosphatase 62 U/L (34-104) 03/20/18 06:50 B-Natriuretic Peptide 18 pg/mL (<=100) 03/20/18 06:50 Total Protein 7.2 g/dL (6.4-8.9) 03/20/18 06:50 Albumin 4.4 g/dL (3.2-5.2) 03/20/18 06:50 Globulin 2.8 g/dL (2-4) 03/20/18 06:50 Albumin/Globulin Ratio 1.6 (1-3) 03/20/18 06:50 03/20/18 03/20/18 06:50 09:47 Troponin I 0.03 0.02 Diagnostic Imaging: CT chest 02/28/2018: 5.8 cm aortic root (in 01/2015 was 5.3 cm), aortic 3.9 cm at level of PA Echo 03/02/2018: mild to moderate aortic insufficiency of a tricuspid aortic valve with a 5.8 cm aortic root. Cardiac catheterization 12/2010 indication chest pain mild non-obstructive cad Cardiac catheterization [facility] in [place] in January 2013 indication chest pain showed no significant CAD. EKG Data: ekg here: NSR, normal ekg Assessment/Plan Patient with a history as above who had presented with what was described as non -cardiac musculoskeletal pain of 2 days duration. He ruled out for ACS. He CT scan showed a stable aortic root aneurysm without rupture which is known about and he has already been referred to a CV surgeon for consideration of elective repair. After patient is recovered from his anaphylactic respiratory failure, his home meds need re-introduced with good BP control. He needs counseling on alcohol moderation and smoking cessation. After discharge he should follow up with CV surgeon as previously recommended. Unless there is a change in his cardiovascular status, I do not think any further evaluation is needed at this time.
[2018-03-20] MEDS: Famotidine IV* 10 MG/ML 2 ML (20 mg) IV SLOW PU SCH (21:10)
[2018-03-20] MEDS: amLODIPine TAB* 5 MG PO SCH (22:06)
[2018-03-20] MEDS: hydrALAZINE TAB* 25 MG PO SCH (22:06)
[2018-03-21] MEDS: diPHENhydraMINE LIQ* 12.5 MG/5 ML UDC NG TUBE SCH ×2 (00:09→05:46)
[2018-03-21] MEDS: Chlorhexidine MOUTHWASH 0.12%* 15 ML UDC TOPICAL SCH ×7 (00:09→23:49)
[2018-03-21] MEDS: Insulin LISPRO* 1 UNITS UNIT SUBCUT SCH ×7 (00:09→23:48)
[2018-03-21] MEDS: Propofol* 100 ML IV SCH ×3 (01:30→21:07)
[2018-03-21] MEDS: methylPREDNISolone SOD 40 MG* 1 ML VIAL IV SCH ×3 (01:36→20:25)
[2018-03-21] MEDS: Dexmedetomidine* 400 MCG in NS 0.9% 100 ML* 96 ML IVPB SCH ×3 (02:00→18:58)
[2018-03-21] MEDS: NS 0.9% 1000 ML* 1,000 ML IV SCH ×2 (05:33→21:07)
[2018-03-21 06:48] LABS: Hematocrit 46 % (42-52); Hemoglobin 15.6 g/dl (14.0-18.0); Mean Corpuscular HGB Conc 34 g/dl (31-36); Mean Corpuscular Hemoglobin 33 pg (27-31); Mean Corpuscular Volume 95 fL (80-94); Mean Platelet Volume 7.5 fL (7.4-10.4); Platelet Count 152 10^3/ul (150-450); Red Blood Count 4.79 10^6/ul (4.00-5.40); Red Cell Distribution Width 15 % (10.5-15); White Blood Count 10.6 10^3/ul (3.5-10.8)
[2018-03-21 07:05] LABS: EGFR Non-African American 117.8 (>60)
[2018-03-21] MEDS: Famotidine IV* 10 MG/ML 2 ML (20 mg) IV SLOW PU SCH ×2 (07:19→19:42)
[2018-03-21] MEDS: hydrALAZINE TAB* 25 MG PO SCH ×4 (08:25→19:42)
--- NOTE | 2018-03-21 11:39 | PN ---
Progress Note - Progress Note Date of Service: 03/21/18 Note: Progress Note -- Critical Care 24 hour events: -intubated; sedated -overnigth some oral vomitus; NGT pushed further in this morning -tmax 100, now afebrile. Tele: NSR Vitals: Vital Signs Temp 96.8 F 03/20/18 11:01 Pulse 74 03/20/18 11:01 Resp 15 03/20/18 11:00 BP 115/76 03/20/18 11:00 Pulse Ox 98 03/20/18 11:01 Intake & Output 03/19/18 03/20/18 03/20/18 18:59 06:59 18:59 Output Total 115 Balance -115 Weight 95.708 kg 94.6 kg Output: Chaudhary 115 O2/Vent: AC 40%, rate 14 Infusions: propofol, precedex, NS 60cc/hr Current Medications: Albuterol/Ipratropium (Duoneb (Albuterol 2.5 Mg/Ipratropium 0.5 Mg)) 1 neb INH [id number] AWAKE PRN PRN Reason: sob/wheexing Amlodipine Besylate (Norvasc Tab*) 10 mg PO Q24H PAIGE Last Admin: 03/20/18 22:06 Dose: 10 mg Chlorhexidine Gluconate (Peridex Mouth Wash 0.12%*) 15 ml TOPICAL Q4H PAIGE Last Admin: 03/21/18 07:19 Dose: 15 ml Dextrose (D50w Syringe 50 Ml*) 12.5 gm IV PUSH .FOR FS < 60 - SS PRN PRN Reason: FS < 60 Famotidine (Pepcid Iv*) 20 mg IV SLOW PU BID PAIGE Last Admin: 03/21/18 07:19 Dose: 20 mg Hydralazine HCl (Apresoline Tab*) 50 mg PO QID PAIGE Propofol (Diprivan*) 100 mls @ 43.069 mls/hr IV .(Initial Rate) [facility]; Protocol Last Admin: 03/21/18 01:30 Dose: 22.7 mls/hr Dexmedetomidine HCl 400 mcg/ (Sodium Chloride) 100 mls @ 15 mls/hr IVPB Q8H PAIGE ; Protocol Last Admin: 03/21/18 09:46 Dose: 9.5 mls/hr Sodium Chloride (Ns 0.9% 1000 Ml*) 1,000 mls @ 60 mls/hr IV .PER RATE [facility] Last Admin: 03/21/18 05:33 Dose: 60 mls/hr Insulin Glargine (Lantus(*)) 5 units SUBCUT Q24H [facility] Insulin Human Lispro (Humalog*) 0 units SUBCUT FS Q4 ICU [facility]; Protocol Last Admin: 03/21/18 07:29 Dose: 3 units Lisinopril (Prinivil Tab*) 5 mg PO DAILY [facility] Methylprednisolone Sodium Succinate (Solu-Medrol 40 Mg) 40 mg IV Q8H [facility] Last Admin: 03/21/18 08:28 Dose: 40 mg Metoprolol Tartrate (Lopressor Tab*) 25 mg PO BID [facility] Physical Exam: General: intubated, sedated, no distress, no diaphoresis Head: normocephalic, atraumatic HEENT: no pallor, no icterus, moist mucous membranes Neck: soft, supple, no jvd CVS: normal rate, regular, no murmur Resp: bilateral air entry, no rhales, no wheeze, no rhonchi, no acc muscle use Abdomen: soft, nontender, nondistended, bowel sounds present Ext: pulses+, warm, no edema Skin: intact Neuro: sedated, intubated Labs: Laboratory Results - last 24 hr 03/20/18 03/20/18 03/20/18 11:48 15:54 19:57 WBC RBC Hgb Hct MCV MCH MCHC RDW Plt Count MPV Sodium Potassium Chloride Carbon Dioxide Anion Gap BUN Creatinine Est GFR ( Amer) Est GFR (Non-Af Amer) BUN/Creatinine Ratio Glucose POC Glucose (mg/dL) 192 H 157 H 196 H Calcium Magnesium 03/21/18 03/21/18 03/21/18 00:02 04:17 06:35 WBC RBC Hgb Hct MCV MCH MCHC RDW Plt Count MPV Sodium 136 Potassium 4.0 Chloride 103 Carbon Dioxide 24 Anion Gap 9 BUN 14 Creatinine 0.69 Est GFR ( Amer) 142.5 Est GFR (Non-Af Amer) 117.8 BUN/Creatinine Ratio 20.3 H Glucose 186 H POC Glucose (mg/dL) 181 H 180 H Calcium 8.9 Magnesium 1.8 L 03/21/18 03/21/18 06:35 07:17 WBC 10.6 RBC 4.79 Hgb 15.6 Hct 46 MCV 95 H MCH 33 H MCHC 34 RDW 15 Plt Count 152 MPV 7.5 Sodium Potassium Chloride Carbon Dioxide Anion Gap BUN Creatinine Est GFR ( Amer) Est GFR (Non-Af Amer) BUN/Creatinine Ratio Glucose POC Glucose (mg/dL) 175 H Calcium Magnesium Imaging: cxr 03/20 - ngt in place, no infiltrates cxr 03/21 - ngt in stomach now, ett above [place], no clear focal infiltrate noted Assessment: 58y M w/pmhx of CAD, DM, Ascending Aortic Aneurysm with AI, hypothyroidism, HTN, asthma, h/o of distant GI bleed, Depression/PTSD; patient came to [place] ER for complaints of Chest pain and SOB on 03/19. During Er evaluation he was found to have trop 0.55, without acute EKG changes consistent with AMI. 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 While in [place] he may have eating a contaminated/wrong food with seafood it seems and developed an allergic reaction , where he was treated with IV pepcid/benadryl/steroids. He was deemed stable and transferred via EMS to [facility]. On arrival to [facility] he was short of breath, in distress, stridorous with edema in posterior pharynx. Given emergent nature he was given medications and intubated for angioedema and airway compromise by anesthesiology. -Acute Respiratory Failure, unspecified 2/2 to angioedema, intubated for airway protection -Anaphylaxis/Angioedema 2/2 to seafood -Chest pain -Ascending Thoracic aortic aneurysm with associated AI CAD DM Depression/PTSD Plan: Neuro- maintain sedation with propofol and precedex. delirium prec. daily sedation vacation. CVS- BP stable. HR stable. IVF NS 60cc/hr. Cardiology consult reviewed. TTE today. Plan for extubation, then at some point discharge for further surgical evaluation. -Known Asc Aneurysm with AI. TTE today. Restarted antihypertensives metoprolol, increased po hydralzine, restarted norvasc and ACEI. Angioedema likely not ACEI , was given seafood. Resp- intubated, maintain mechanical ventilation. IV solumedrol, IV pepcid. no Epi indicated at this time. BP stable. Will wake and assess airway if he can show posterior pharynx. will need Leak test. Anmol no extubation today, ENT for possible fiberoptic visualization wednesday. ID- tmax 100. wbc normal. CXR without any sig infiltrate. no infectious process. no abx indicated. GI- NPO, start TF glucerna today. GI proph. Renal- Cr okay. K okay, no acidosis. NS infusion. chaudhary+ Heme- hg normal, plt normal. DVT proph. Endo- fingerstick q4h, lispro q4h. Musculsk- pressure ulcer prophylaxis. Bedrest. Wounds- none Nutrition- TF glucerna today DVT prophylaxis: scd GI prophylaxis: h2b Central Line: no Arterial Line: no Chaudhary Cathetor: yes Disposition: ICU Code Status: full code Total Critical Care time is 35 minutes, excluding procedures/teaching Luca Mora MD Drill Runner (Electronically Signed)
[2018-03-21] MEDS: Metoprolol Tartrate TAB* 25 MG PO SCH ×2 (11:49→21:07)
[2018-03-21] MEDS: Insulin GLARGINE(*) 1 UNITS UNIT SUBCUT SCH (11:49)
[2018-03-21] MEDS: Lisinopril TAB* 5 MG PO SCH (11:49)
--- NOTE | 2018-03-21 12:31 | ECHO ---
Patient: PEDRITO JUARZE [facility] Rec#: [id number] : 1960 Date: 03/21/2018 Age: 58y Height: 173 cm / 68.1 in Weight: 96 kg / 211.6 lbs Sex: M BSA: 2.1 Room#: ICU 7 Admit Date#: 03/20/2018 Type: Inpatient Referring: Luca Mora Reading: Jose M Hidalgo MD Sales Representative Supervisor: Vero Arteaga,RDCS,RDMS CC: Sahra Randle MD Transthoracic Echocardiogram Indication: Dilated AO, CP BP: 162/88 HR: 60 Rhythm: NSR Findings History: Severely dilated AO, AOV insufficiency (moderate), CAD. Technical Comments: The study quality is fair. The study is technically limited due to patient being intubated and on a ventilator. Left Ventricle: The left ventricular chamber size is normal. Moderate concentric left ventricular hypertrophy is observed. Moderate global hypokinesis of the left ventricle is observed. There is moderately decreased left ventricular systolic function. The estimated ejection fraction is 40-45%. There is no consistent Doppler evidence of clinically significant diastolic dysfunction. Left Atrium: The left atrium is moderately dilated. Right Ventricle: The right ventricular chamber size and systolic function are within normal limits. The right ventricle wall thickness is mildly increased. Right Atrium: The right atrial cavity size is normal. Aortic Valve: There is no evidence of aortic valve thickening. Systolic excursion of the aortic valve is normal. There is moderate aortic regurgitation.In some views there could be Severe AR There is no evidence of aortic stenosis. Mitral Valve: The mitral valve leaflets appear normal. There is a trace of mitral regurgitation. There is no evidence of mitral stenosis. Tricuspid Valve: The tricuspid valve leaflets are normal. There is no evidence of tricuspid valve regurgitation. Unable to estimate the right ventricular systolic pressure. Pulmonic Valve: The pulmonic valve structure is not well visualized. Pericardium: There is no significant pericardial effusion. Aorta: The ascending aorta is not well visualized. There is no dilatation of the aortic arch. There is severe dilatation of the aortic root. Pulmonary Artery: The main pulmonary artery is not well visualized. Venous: Unable to accurately comment on the size collapsibility of the IVC as the patient in known to be on mechanical ventilation. The inferior vena cava is dilated. Conclusions Moderate concentric left ventricular hypertrophy is observed. Moderate global hypokinesis of the left ventricle is observed. There is moderately decreased left ventricular systolic function. The estimated ejection fraction is 40-45%. The left atrium is moderately dilated. There is no evidence of aortic stenosis. There is moderate aortic regurgitation.In some views there could be Severe AR There is a trace of mitral regurgitation. There is no evidence of tricuspid valve regurgitation. Unable to estimate the right ventricular systolic pressure. There is no significant pericardial effusion. The ascending aorta is not well visualized. Unable to evaluate for aortic dissection There is severe dilatation of the aortic root. Compared to study of 03/02/18, the LV function is slightly lower. Aortic regurg is worse Measurements Name Value Normal Range RVIDd (AP) 2D 2.5 cm (0.9 - 2.6) RAd ISD 4CH 4.8 cm (3.4 - 4.9) RA (A4C)W 4.7 cm (2.9 - 4.6) IVSd (2D) 1.5 cm (0.6 - 1) LVPWd (2D) 1.4 cm (0.6 - 1) LVIDd (2D) 5.1 cm (3.6 - 5.4) LVIDs (2D) 4.2 cm - LV FS (2D) 16 % (25 - 45) Aortic Annulus 2.9 cm (1.4 - 2.6) Ao root diameter (2D) 4.8 cm (2.1 - 3.5) Aortic arch 3.2 cm (1.8 - 3.4) LA dimension (AP) 2D 2.6 cm (2.3 - 3.8) LAd ISD 4CH 6.7 cm (2.9 - 5.3) LA ISD 4CH W 3.6 cm (2.5 - 4.5) Name Value Normal Range LA ESV BP (A/L) index 66 ml/m2 - Name Value Normal Range MV E-wave Vmax 0.5 m/sec - MV deceleration time 246 msec - MV A-wave Vmax 0.5 m/sec - MV E:A ratio 1 ratio - LV septal e' Vmax 0.04 m/sec - LV lateral e' Vmax 0.05 m/sec - LV E:e' septal ratio 11 ratio - LV E:e' lateral ratio 10 ratio - Name Value Normal Range AV Vmax 1.1 m/sec - AV VTI 24 cm - AV peak gradient 5 mmHg - AV mean gradient 3 mmHg - LVOT Vmax 0.8 m/sec - LVOT VTI 19 cm - LVOT peak gradient 2.6 mmHg - LVOT mean gradient 1 mmHg - AR PHT 720 msec - Name Value Normal Range RAP 8 mmHg - IVC diameter 3 cm -
[2018-03-21] MEDS: amLODIPine TAB* 5 MG PO SCH (22:04)
[2018-03-22] MEDS: Propofol* 100 ML IV SCH ×4 (00:46→09:49)
[2018-03-22] MEDS: Chlorhexidine MOUTHWASH 0.12%* 15 ML UDC TOPICAL SCH ×3 (03:57→12:59)
[2018-03-22] MEDS: Insulin LISPRO* 1 UNITS UNIT SUBCUT SCH ×5 (03:57→21:24)
[2018-03-22] MEDS: Dexmedetomidine* 400 MCG in NS 0.9% 100 ML* 96 ML IVPB SCH ×3 (03:57→14:35)
[2018-03-22 04:01] LABS: Hematocrit 45 % (42-52); Mean Corpuscular HGB Conc 33 g/dl (31-36); Mean Corpuscular Hemoglobin 32 pg (27-31); Mean Corpuscular Volume 97 fL (80-94); Mean Platelet Volume 7.6 fL (7.4-10.4); Platelet Count 144 10^3/ul (150-450); Red Blood Count 4.67 10^6/ul (4.00-5.40); Red Cell Distribution Width 15 % (10.5-15); White Blood Count 10.3 10^3/ul (3.5-10.8)
[2018-03-22 04:15] LABS: EGFR Non-African American 108.6 (>60)
[2018-03-22] MEDS: methylPREDNISolone SOD 40 MG* 1 ML VIAL IV SCH ×2 (07:56→21:29)
[2018-03-22] MEDS: hydrALAZINE TAB* 25 MG PO SCH ×4 (07:57→21:29)
[2018-03-22] MEDS: Metoprolol Tartrate TAB* 25 MG PO SCH ×2 (07:57→21:30)
[2018-03-22] MEDS: Lisinopril TAB* 5 MG PO SCH (07:57)
[2018-03-22] MEDS: Famotidine IV* 10 MG/ML 2 ML (20 mg) IV SLOW PU SCH (07:57)
--- NOTE | 2018-03-22 11:34 | PN ---
Progress Note - Progress Note Date of Service: 03/22/18 Note: Progress Note -- Critical Care 24 hour events: -intubated; no events overnight -yesterday awake, followed commands Tele: NSR Vitals: O2/Vent: AC 40% Infusions: propofol, precedex, NS 60cc/hr Current Medications: Albuterol/Ipratropium (Duoneb (Albuterol 2.5 Mg/Ipratropium 0.5 Mg)) 1 neb INH [id number] AWAKE PRN PRN Reason: sob/wheexing Amlodipine Besylate (Norvasc Tab*) 10 mg PO Q24H PAIGE Last Admin: 03/21/18 22:04 Dose: 10 mg Chlorhexidine Gluconate (Peridex Mouth Wash 0.12%*) 15 ml TOPICAL Q4H PAIGE Last Admin: 03/22/18 07:56 Dose: 15 ml Dextrose (D50w Syringe 50 Ml*) 12.5 gm IV PUSH .FOR FS < 60 - SS PRN PRN Reason: FS < 60 Famotidine (Pepcid Iv*) 20 mg IV SLOW PU BID PAIGE Last Admin: 03/22/18 07:57 Dose: 20 mg Hydralazine HCl (Apresoline Tab*) 50 mg PO QID PAIEG Last Admin: 03/22/18 07:57 Dose: 50 mg Sodium Chloride (Ns 0.9% 1000 Ml*) 1,000 mls @ 60 mls/hr IV .PER RATE PAIGE Last Admin: 03/21/18 21:07 Dose: 60 mls/hr Dexmedetomidine HCl 400 mcg/ (Sodium Chloride) 100 mls @ 15 mls/hr IVPB Q7H PAIGE ; Protocol Last Admin: 03/22/18 03:57 Dose: 11.8 mls/hr Propofol (Diprivan*) 100 mls @ 43.069 mls/hr IV .(Initial Rate) PAIGE; Protocol Last Admin: 03/22/18 09:49 Dose: 36.9 mls/hr Insulin Glargine (Lantus(*)) 5 units SUBCUT Q24H PAIGE Last Admin: 03/21/18 11:49 Dose: 5 units Insulin Human Lispro (Humalog*) 0 units SUBCUT FS Q4 ICU PAIGE; Protocol Last Admin: 03/22/18 09:06 Dose: 6 units Lisinopril (Prinivil Tab*) 5 mg PO DAILY [facility] Last Admin: 03/22/18 07:57 Dose: 5 mg Methylprednisolone Sodium Succinate (Solu-Medrol 40 Mg) 40 mg IV Q12H [facility] Last Admin: 03/22/18 07:56 Dose: 40 mg Metoprolol Tartrate (Lopressor Tab*) 25 mg PO BID [facility] Last Admin: 03/22/18 07:57 Dose: 25 mg Physical Exam: General: intubated, sedated, no distress, no diaphoresis Head: normocephalic, atraumatic HEENT: no pallor, no icterus, moist mucous membranes Neck: soft, supple, no jvd CVS: normal rate, regular, no murmur Resp: bilateral air entry, no rhales, no wheeze, no rhonchi, no acc muscle use Abdomen: soft, nontender, nondistended, bowel sounds present Ext: pulses+, warm, no edema Skin: intact Neuro: sedated, intubated Labs: Imaging: cxr /2 - ngt in place, no infiltrates cxr /3 - ngt in stomach now, ett above [place], no clear focal infiltrate noted Assessment: 58y M w/pmhx of CAD, DM, Ascending Aortic Aneurysm with AI, hypothyroidism, HTN, asthma, h/o of distant GI bleed, Depression/PTSD; patient came to [place] ER for complaints of Chest pain and SOB on 03/19. During Er evaluation he was found to have trop 0.55, without acute EKG changes consistent with AMI. 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 While in [place] he may have eating a contaminated/wrong food with seafood it seems and developed an allergic reaction , where he was treated with IV pepcid/benadryl/steroids. He was deemed stable and transferred via EMS [place] [facility] [place] [facility] [place] was short of breath, in distress, stridorous with edema in posterior pharynx. Given emergent nature he was given medications and intubated for angioedema and airway compromise by anesthesiology. -Acute Respiratory Failure, unspecified 2/2 to angioedema, intubated for airway protection -Anaphylaxis/Angioedema 2/2 to seafood -Chest pain -Ascending Thoracic aortic aneurysm with associated AI CAD DM Depression/PTSD Plan: Neuro- wean down propofol and precedex. delirium prec. daily sedation vacation. CVS- BP stable. HR stable. IVF NS 60cc/hr. TTE with mod-severe AI, unclear Aortic root size. -Known Asc Aneurysm with AI. Restarted antihypertensives metoprolol, po hydralzine, norvasc and ACEI. Angioedema likely not ACEI, was given seafood. Resp- intubated, had leak test yesterday+. wean sedation. assess oral cavity. if leak test+, will plan extubation. no plan for ENT scope today. IV solumedrol , IV pepcid. ID- tmax 99.1 wbc 10 CXR without any sig infiltrate. no infectious process. no abx indicated. GI- glucerna TF. GI proph. Renal- Cr okay. K okay, no acidosis. NS infusion. chaudhary+ Heme- hg normal, plt normal. DVT proph. Endo- fingerstick q4h, lispro q4h. Musculsk- pressure ulcer prophylaxis. Bedrest. Wounds- none Nutrition- TF glucerna DVT prophylaxis: scd GI prophylaxis: h2b Central Line: no Arterial Line: no Chaudhary Cathetor: yes Disposition: ICU Code Status: full code Total Critical Care time is 35 minutes, excluding procedures/teaching Luca Mora MD [employer] (Electronically Signed)
[2018-03-22] MEDS: Insulin GLARGINE(*) 1 UNITS UNIT SUBCUT SCH (13:08)
[2018-03-22] MEDS: amLODIPine TAB* 5 MG PO SCH (22:11)
[2018-03-23 05:51] LABS: Hematocrit 45 % (42-52); Hemoglobin 14.8 g/dl (14.0-18.0); Mean Corpuscular HGB Conc 33 g/dl (31-36); Mean Corpuscular Hemoglobin 32 pg (27-31); Mean Corpuscular Volume 97 fL (80-94); Mean Platelet Volume 8.1 fL (7.4-10.4); Platelet Count 148 10^3/ul (150-450); Red Blood Count 4.61 10^6/ul (4.00-5.40); Red Cell Distribution Width 15 % (10.5-15); White Blood Count 11.9 10^3/ul (3.5-10.8)
[2018-03-23] MEDS: Famotidine TAB* 20 MG PO SCH (08:09)
[2018-03-23] MEDS: Lisinopril TAB* 5 MG PO SCH (08:09)
[2018-03-23] MEDS: hydrALAZINE TAB* 25 MG PO SCH ×4 (08:09→23:52)
[2018-03-23] MEDS: Insulin LISPRO* 1 UNITS UNIT SUBCUT SCH ×4 (08:10→23:39)
[2018-03-23] MEDS: Metoprolol Tartrate TAB* 25 MG PO SCH ×2 (08:10→23:49)
--- NOTE | 2018-03-23 08:10 | PN ---
Subjective - Subjective Reason for Note: Progress Note History: I have assumed care of Bisi Mclean as I am his primary care provider. I have learned about his presentation and hospital course from the electronic medical records and the patchy memories of the patient. He went to the ED at [facility] on Mar 19 with chest pain. He was given a can of "tuna " that looked suspicious to the patient as being lobster or shellfish, he was reassured and told to eat it. He next remembers a voice saying "I have never seen a palate as swollen as this". He has no recollection of being intubated. Today, he has no chest pain. He has been coughing "all night". He has an appetite, but "it passes straight thro' me" - he has diarrhea. He has an indwelling Asher catheter. He denies fevers, chills and rigors. He has no other focal symptoms. Active Problems: Active Problems Acute respiratory failure (Acute) J96.00 Anaphylactic reaction (Acute) T78.2XXA Angioedema (Acute) T78.3XXA Chest pain (Acute) R07.9 Diarrhea (Acute) R19.7 Shellfish allergy (Acute) Z91.013 Aortic regurgitation (Chronic) I35.1 Asthma (Chronic) J45.909 Essential hypertension (Chronic) I10 Hyperlipidemia (Chronic) E78.5 PTSD (post-traumatic stress disorder) (Chronic) F43.10 Peripheral autonomic neuropathy due to diabetes mellitus (Chronic) E11.43 Primary hypothyroidism (Chronic) E03.9 Thoracic aortic aneurysm (Chronic) I71.2 Tobacco abuse (Chronic) Z72.0 Type 2 diabetes mellitus (Chronic) Current Medications: Current Medications Albuterol/Ipratropium (Duoneb (Albuterol 2.5 Mg/Ipratropium 0.5 Mg)) 1 neb INH RT.A0UO-EXVND AWAKE PRN PRN Reason: sob/wheexing Amlodipine Besylate (Norvasc Tab*) 10 mg PO Q24H [facility] Last Admin: 03/22/18 22:11 Dose: 10 mg Dextrose (D50w Syringe 50 Ml*) 12.5 gm IV PUSH .FOR FS < 60 - SS PRN PRN Reason: FS < 60 Famotidine (Pepcid Tab*) 20 mg PO DAILY [facility] Hydralazine HCl (Apresoline Tab*) 50 mg PO QID [facility] Last Admin: 03/22/18 21:29 Dose: 50 mg Insulin Glargine (Lantus(*)) 5 units SUBCUT Q24H [facility] Last Admin: 03/22/18 13:08 Dose: 5 units Insulin Human Lispro (Humalog*) 0 units SUBCUT ACHS [facility]; Protocol Last Admin: 03/22/18 21:24 Dose: Not Given Lisinopril (Prinivil Tab*) 5 mg PO DAILY [facility] Last Admin: 03/22/18 07:57 Dose: 5 mg Methylprednisolone Sodium Succinate (Solu-Medrol 40 Mg) 40 mg IV Q12H [facility] Last Admin: 03/22/18 21:29 Dose: 40 mg Metoprolol Tartrate (Lopressor Tab*) 25 mg PO BID [facility] Last Admin: 03/22/18 21:30 Dose: 25 mg Home Medications: Home Medications Medication Instructions Recorded Confirmed Type Folic Acid TAB* [Folvite TAB*] 1 mg PO DAILY 08/26/17 01/11/18 History Gabapentin CAP(*) [Neurontin 300 300 mg PO TID 08/26/17 01/11/18 History CAP(*)] Levothyroxine TAB* [Synthroid TAB*] 125 mcg PO DAILY 08/26/17 01/11/18 History Metoprolol Succinate XL TAB* 50 mg PO DAILY 08/26/17 01/11/18 History [Toprol XL TAB*] Simvastatin [Zocor] 20 mg PO DAILY 08/26/17 01/11/18 History Sitagliptin Phosphate [Januvia] 100 mg PO DAILY 08/26/17 01/11/18 History amLODIPine TAB* [Norvasc 5 mg TAB*] 10 mg PO DAILY 08/26/17 01/11/18 History traZODone TAB* [Desyrel TAB*] 150 mg PO BEDTIME 08/26/17 01/18/18 History Albuterol 2.5MG/3ML (0.083%)* 2.5 mg INH Q6H PRN 12/10/17 01/11/18 History [Ventolin 2.5 MG/3 ML NEB.ASIM*] Albuterol inh POWDER (NF) [Proair 2 puff INH QID PRN 12/10/17 01/11/18 History Respiclick] Aspirin TAB* [Aspirin 325 MG TAB*] 325 mg PO DAILY 12/10/17 01/11/18 History Cetirizine* [ZyrTEC 10 MG TAB*] 10 mg PO DAILY 12/10/17 01/11/18 History EPINEPHrine [Epipen 2-Delon] 0.3 mg IM ONCE PRN 12/10/17 01/11/18 History Econazole 1% CREAM (NF) [Econazole 1 applic TOPICAL BID PRN 12/10/17 01/11/18 History 1 % CREAM (NF)] Escitalopram Oxalate [Lexapro 20 20 mg PO DAILY 12/10/17 01/11/18 History mg] Fluocinonide 0.05% CM (NF) [Lidex 1 applic TOPICAL TID PRN 12/10/17 01/11/18 History 0.05% CREAM (NF)] Ipratropium Br (Nf)0.03% Nasal 2 spray BOTH NARES .3-4XDAILY MAX 12/10/17 History [Ipratropium Crystal] 4DAYS PRN Loperamide CAP* [Imodium CAP*] 2 mg PO Q6H PRN 12/10/17 01/11/18 History Meloxicam 15 mg PO DAILY 12/10/17 01/18/18 History Nitroglycerin [Nitrostat] 0.3 mg SL .Q5MIN UP TO 3X PRN 12/10/17 01/11/18 History [facility]-3 Acid Ethyl Esters [Lovaza 2 cap PO BID 12/10/17 01/11/18 History 1 gm] Omeprazole CAP* [Prilosec CAP* 20 20 mg PO BID 12/10/17 01/18/18 History MG] Quinapril HCl 20 mg PO DAILY 12/10/17 01/11/18 History Tizanidine HCl [Zanaflex] 4 mg PO BID 12/10/17 01/11/18 History Zolpidem TAB* [Ambien TAB*] 10 mg PO BEDTIME 12/10/17 01/11/18 History glipiZIDE TAB* [Glucotrol TAB*] 5 mg PO BID 12/10/17 01/11/18 History metFORMIN* [Glucophage 1000 MG TAB 1,000 mg PO BID 12/10/17 01/11/18 History *] Calcium Carbonate/Vitamin D3 1 tab PO DAILY 01/11/18 01/11/18 History [Calcium 500+D 500-200 mg-Unit] Sildenafil Citrate [Viagra] 100 mg PO DAILY PRN 01/11/18 01/11/18 History Allergies: Allergies Allergy/AdvReac Type Severity Reaction Status Date / Time atorvastatin [From Lipitor] Allergy Anaphylatic Verified 12/10/17 16:03 Shock fenofibrate [From Tricor] Allergy Unknown Verified 03/20/18 15:30 Reaction Details iodine Allergy Anaphylatic Verified 12/10/17 16:03 Shock shellfish derived Allergy Anaphylatic Verified 03/21/18 11:19 Shock Sulfa (Sulfonamide Allergy Anaphylatic Verified 12/10/17 16:03 Antibiotics) Shock Objective - Vital Signs Vital Signs: Vital Signs 03/22/18 03/22/18 03/22/18 08:15 08:16 08:30 Temperature 98.4 F 98.4 F 98.4 F Pulse Rate 57 57 63 Respiratory Rate Blood Pressure 151/82 (mmHg) O2 Sat by Pulse 96 95 95 Oximetry 03/22/18 03/22/18 03/22/18 08:31 08:45 08:46 Temperature 98.4 F 98.4 F 98.4 F Pulse Rate 67 58 59 Respiratory Rate Blood Pressure 140/80 127/76 (mmHg) O2 Sat by Pulse 94 94 93 Oximetry 03/22/18 03/22/18 03/22/18 09:00 09:01 09:15 Temperature 98.4 F 98.4 F 98.6 F Pulse Rate 68 66 59 Respiratory 18 Rate Blood Pressure 117/72 (mmHg) O2 Sat by Pulse 99 97 96 Oximetry 03/22/18 03/22/18 03/22/18 09:16 09:30 09:31 Temperature 98.6 F 98.8 F 98.8 F Pulse Rate 58 62 61 Respiratory Rate Blood Pressure 133/75 124/75 (mmHg) O2 Sat by Pulse 96 97 97 Oximetry 03/22/18 03/22/18 03/22/18 09:45 09:46 10:00 Temperature 98.8 F 98.8 F 98.8 F Pulse Rate 71 64 60 Respiratory 21 Rate Blood Pressure 136/84 (mmHg) O2 Sat by Pulse 97 96 96 Oximetry 03/22/18 03/22/18 03/22/18 10:01 10:15 10:16 Temperature 98.8 F 98.8 F 98.8 F Pulse Rate 68 60 61 Respiratory Rate Blood Pressure 137/76 141/78 (mmHg) O2 Sat by Pulse 96 95 94 Oximetry 03/22/18 03/22/18 03/22/18 10:30 10:39 10:45 Temperature 99.0 F 99.1 F 99.1 F Pulse Rate 72 65 65 Respiratory Rate Blood Pressure 146/74 (mmHg) O2 Sat by Pulse 95 98 97 Oximetry 03/22/18 03/22/18 03/22/18 10:46 11:00 11:01 Temperature 99.1 F 99.3 F 99.3 F Pulse Rate 65 61 60 Respiratory 19 Rate Blood Pressure 131/77 133/78 (mmHg) O2 Sat by Pulse 97 97 96 Oximetry 03/22/18 03/22/18 03/22/18 11:15 11:16 11:30 Temperature 99.3 F 99.3 F 99.3 F Pulse Rate 60 60 58 Respiratory Rate Blood Pressure 131/75 (mmHg) O2 Sat by Pulse 96 96 96 Oximetry 03/22/18 03/22/18 03/22/18 11:31 11:45 12:00 Temperature 99.3 F 99.3 F 99.5 F Pulse Rate 58 77 67 Respiratory 23 Rate Blood Pressure 134/76 (mmHg) O2 Sat by Pulse 96 93 97 Oximetry 03/22/18 03/22/18 03/22/18 12:01 12:15 12:17 Temperature 99.5 F 99.5 F 99.5 F Pulse Rate 67 76 71 Respiratory Rate Blood Pressure 131/84 (mmHg) O2 Sat by Pulse 96 95 98 Oximetry 03/22/18 03/22/18 03/22/18 12:30 12:45 12:46 Temperature 99.1 F 99.0 F 99.0 F Pulse Rate 69 67 66 Respiratory 21 23 Rate Blood Pressure 122/69 (mmHg) O2 Sat by Pulse 97 98 99 Oximetry 03/22/18 03/22/18 03/22/18 13:00 13:01 13:15 Temperature 99.0 F 99.0 F 99.0 F Pulse Rate 59 64 67 Respiratory 18 14 22 Rate Blood Pressure 127/70 132/69 (mmHg) O2 Sat by Pulse 100 99 97 Oximetry 03/22/18 03/22/18 03/22/18 13:16 13:30 13:31 Temperature 99.0 F Pulse Rate 67 67 64 Respiratory 20 20 19 Rate Blood Pressure 126/72 (mmHg) O2 Sat by Pulse 98 100 99 Oximetry 03/22/18 03/22/18 03/22/18 13:45 13:46 14:00 Temperature 99.0 F 99.0 F 98.8 F Pulse Rate 67 66 68 Respiratory 21 19 17 Rate Blood Pressure 123/69 (mmHg) O2 Sat by Pulse 96 96 97 Oximetry 03/22/18 03/22/18 03/22/18 14:15 14:16 14:30 Temperature 98.8 F 98.8 F 98.6 F Pulse Rate 66 70 66 Respiratory 12 13 16 Rate Blood Pressure 120/67 124/67 (mmHg) O2 Sat by Pulse 97 96 96 Oximetry 03/22/18 03/22/18 03/22/18 14:31 14:45 14:46 Temperature 98.6 F 98.6 F 98.6 F Pulse Rate 67 64 67 Respiratory 17 20 18 Rate Blood Pressure 120/67 (mmHg) O2 Sat by Pulse 96 95 97 Oximetry 03/22/18 03/22/18 03/22/18 15:00 15:01 15:15 Temperature 98.4 F 98.4 F 98.4 F Pulse Rate 67 69 61 Respiratory 18 19 18 Rate Blood Pressure 124/67 130/72 (mmHg) O2 Sat by Pulse 96 97 98 Oximetry 03/22/18 03/22/18 03/22/18 15:16 15:30 15:31 Temperature 98.4 F 98.4 F 98.4 F Pulse Rate 63 60 62 Respiratory 17 15 18 Rate Blood Pressure 126/71 (mmHg) O2 Sat by Pulse 98 98 96 Oximetry 03/22/18 03/22/18 03/22/18 15:45 16:00 16:01 Temperature 98.8 F 98.8 F Pulse Rate 66 67 Respiratory 29 16 18 Rate Blood Pressure (mmHg) O2 Sat by Pulse 99 98 Oximetry 03/22/18 03/22/18 03/22/18 16:02 16:32 16:37 Temperature 98.8 F 98.8 F 99.0 F Pulse Rate 69 69 73 Respiratory 17 17 20 Rate Blood Pressure 122/67 124/77 (mmHg) O2 Sat by Pulse 97 98 98 Oximetry 03/22/18 03/22/18 03/22/18 16:45 16:47 17:00 Temperature 99.0 F 99.0 F 98.8 F Pulse Rate 70 69 72 Respiratory 20 21 20 Rate Blood Pressure 129/89 120/71 (mmHg) O2 Sat by Pulse 97 98 97 Oximetry 03/22/18 03/22/18 03/22/18 17:04 17:15 17:16 Temperature 98.8 F 98.8 F 98.8 F Pulse Rate 68 76 71 Respiratory 17 21 23 Rate Blood Pressure 120/71 120/72 (mmHg) O2 Sat by Pulse 99 97 97 Oximetry 03/22/18 03/22/18 03/22/18 17:30 17:31 17:45 Temperature 98.6 F 98.6 F 98.6 F Pulse Rate 79 78 82 Respiratory 19 21 21 Rate Blood Pressure 128/71 133/71 (mmHg) O2 Sat by Pulse 97 97 97 Oximetry 03/22/18 03/22/18 03/22/18 17:46 18:00 18:01 Temperature 98.6 F 98.4 F 98.4 F Pulse Rate 80 80 78 Respiratory 19 15 22 Rate Blood Pressure 124/71 (mmHg) O2 Sat by Pulse 97 96 97 Oximetry 03/22/18 03/22/18 03/22/18 18:15 18:30 18:31 Temperature 98.2 F 98.6 F 98.6 F Pulse Rate 84 89 92 Respiratory 24 19 20 Rate Blood Pressure 120/74 (mmHg) O2 Sat by Pulse 95 97 94 Oximetry 03/22/18 03/22/18 03/22/18 18:45 19:00 19:01 Temperature 98.8 F 99.0 F 99.0 F Pulse Rate 87 84 88 Respiratory 20 20 16 Rate Blood Pressure 123/66 (mmHg) O2 Sat by Pulse 94 96 96 Oximetry 03/22/18 03/22/18 03/22/18 19:15 19:30 19:31 Temperature 99.0 F 99.0 F 99.0 F Pulse Rate 88 83 80 Respiratory 24 23 19 Rate Blood Pressure 124/71 (mmHg) O2 Sat by Pulse 96 96 97 Oximetry 03/22/18 03/22/18 03/22/18 19:45 20:00 20:01 Temperature 99.0 F 99.0 F 99.0 F Pulse Rate 88 93 90 Respiratory 20 20 23 Rate Blood Pressure 126/84 (mmHg) O2 Sat by Pulse 97 98 97 Oximetry 03/22/18 03/22/18 03/22/18 20:15 20:30 20:31 Temperature 99.0 F 99.0 F 99.0 F Pulse Rate 91 90 87 Respiratory 23 19 19 Rate Blood Pressure 138/74 (mmHg) O2 Sat by Pulse 96 98 97 Oximetry 03/22/18 03/22/18 03/22/18 20:45 21:00 21:01 Temperature 99.0 F 99.1 F 99.1 F Pulse Rate 96 88 97 Respiratory 19 14 12 Rate Blood Pressure 128/76 (mmHg) O2 Sat by Pulse 94 98 96 Oximetry 03/22/18 03/22/18 03/22/18 21:15 21:30 21:31 Temperature 99.1 F 99.1 F 99.1 F Pulse Rate 80 87 86 Respiratory 22 20 22 Rate Blood Pressure 165/80 (mmHg) O2 Sat by Pulse 97 96 96 Oximetry 03/22/18 03/22/18 03/22/18 21:38 21:45 22:00 Temperature 99.3 F 99.3 F 99.3 F Pulse Rate 87 81 80 Respiratory 19 21 15 Rate Blood Pressure 129/81 125/67 (mmHg) O2 Sat by Pulse 98 97 98 Oximetry 03/22/18 03/22/18 03/22/18 22:01 22:15 22:30 Temperature 99.3 F 99.3 F 99.3 F Pulse Rate 82 74 78 Respiratory 19 16 20 Rate Blood Pressure 121/72 (mmHg) O2 Sat by Pulse 96 96 96 Oximetry 03/22/18 03/22/18 03/22/18 22:31 22:45 23:00 Temperature 99.3 F 99.3 F 99.3 F Pulse Rate 73 80 72 Respiratory 18 21 22 Rate Blood Pressure 121/68 (mmHg) O2 Sat by Pulse 96 95 98 Oximetry 03/22/18 03/22/18 03/22/18 23:01 23:15 23:23 Temperature 99.3 F 99.1 F 99.1 F Pulse Rate 71 79 80 Respiratory 22 22 23 Rate Blood Pressure (mmHg) O2 Sat by Pulse 97 97 95 Oximetry 03/22/18 03/22/18 03/22/18 23:30 23:31 23:33 Temperature 99.1 F 99.1 F 99.1 F Pulse Rate 80 78 76 Respiratory 16 25 24 Rate Blood Pressure 143/73 127/66 (mmHg) O2 Sat by Pulse 97 97 97 Oximetry 03/22/18 03/23/18 03/23/18 23:45 00:00 00:01 Temperature 99.1 F 99.1 F 99.1 F Pulse Rate 79 73 73 Respiratory 20 19 15 Rate Blood Pressure 132/75 (mmHg) O2 Sat by Pulse 96 97 97 Oximetry 03/23/18 03/23/18 03/23/18 00:15 00:30 00:31 Temperature 99.3 F 99.1 F 99.1 F Pulse Rate 77 81 77 Respiratory 22 20 22 Rate Blood Pressure 135/77 (mmHg) O2 Sat by Pulse 98 95 95 Oximetry 03/23/18 03/23/18 03/23/18 00:45 01:00 01:01 Temperature 99.1 F 99.1 F 99.1 F Pulse Rate 72 74 74 Respiratory 18 11 16 Rate Blood Pressure 130/77 (mmHg) O2 Sat by Pulse 96 97 97 Oximetry 03/23/18 03/23/18 03/23/18 01:15 01:30 01:31 Temperature 99.1 F 99.1 F 99.1 F Pulse Rate 74 71 72 Respiratory 15 17 19 Rate Blood Pressure 126/69 (mmHg) O2 Sat by Pulse 98 98 98 Oximetry 03/23/18 03/23/18 03/23/18 01:45 02:00 02:01 Temperature 99.1 F 99.3 F 99.3 F Pulse Rate 76 76 75 Respiratory 17 18 19 Rate Blood Pressure 136/72 (mmHg) O2 Sat by Pulse 98 98 98 Oximetry 03/23/18 03/23/18 03/23/18 02:15 02:30 02:31 Temperature 99.3 F 99.1 F 99.1 F Pulse Rate 74 73 82 Respiratory 16 13 15 Rate Blood Pressure 125/69 (mmHg) O2 Sat by Pulse 97 98 99 Oximetry 03/23/18 03/23/18 03/23/18 02:45 03:00 03:01 Temperature 99.1 F 99.0 F 99.1 F Pulse Rate 82 77 73 Respiratory 16 14 26 Rate Blood Pressure 127/73 (mmHg) O2 Sat by Pulse 95 97 97 Oximetry 03/23/18 03/23/18 03/23/18 03:15 03:30 03:31 Temperature 99.1 F 99.3 F 99.1 F Pulse Rate 70 88 Respiratory 15 18 Rate Blood Pressure 152/78 (mmHg) O2 Sat by Pulse 98 83 Oximetry 03/23/18 03/23/18 03/23/18 03:40 03:45 04:00 Temperature 99.3 F 99.3 F 99.3 F Pulse Rate 79 79 68 Respiratory 14 21 19 Rate Blood Pressure 128/66 131/65 (mmHg) O2 Sat by Pulse 98 97 98 Oximetry 03/23/18 03/23/18 03/23/18 04:01 04:15 04:30 Temperature 99.3 F 99.3 F 99.3 F Pulse Rate 70 71 68 Respiratory 12 18 13 Rate Blood Pressure 124/63 (mmHg) O2 Sat by Pulse 98 96 98 Oximetry 03/23/18 03/23/18 03/23/18 04:31 04:45 05:00 Temperature 99.3 F 99.1 F 99.1 F Pulse Rate 72 68 69 Respiratory 19 17 16 Rate Blood Pressure 124/68 (mmHg) O2 Sat by Pulse 97 96 98 Oximetry 03/23/18 03/23/18 03/23/18 05:01 05:15 05:30 Temperature 99.1 F 99.1 F 99.3 F Pulse Rate 70 61 62 Respiratory 14 20 11 Rate Blood Pressure 135/68 (mmHg) O2 Sat by Pulse 97 99 98 Oximetry 03/23/18 03/23/18 03/23/18 05:31 05:45 06:00 Temperature 99.3 F 99.3 F 99.3 F Pulse Rate 70 67 64 Respiratory 20 19 15 Rate Blood Pressure 134/67 (mmHg) O2 Sat by Pulse 98 98 98 Oximetry 03/23/18 03/23/18 03/23/18 06:01 06:15 06:30 Temperature 99.3 F 99.1 F 99.1 F Pulse Rate 66 63 70 Respiratory 16 18 18 Rate Blood Pressure 130/72 (mmHg) O2 Sat by Pulse 98 98 98 Oximetry 03/23/18 03/23/18 03/23/18 06:31 06:45 07:00 Temperature 99.1 F 99.1 F 99.1 F Pulse Rate 68 67 69 Respiratory 20 15 17 Rate Blood Pressure 135/73 (mmHg) O2 Sat by Pulse 98 98 97 Oximetry 03/23/18 03/23/18 03/23/18 07:01 07:15 07:30 Temperature 99.1 F 99.1 F 99.1 F Pulse Rate 71 65 64 Respiratory 15 16 15 Rate Blood Pressure 130/74 (mmHg) O2 Sat by Pulse 97 95 98 Oximetry 03/23/18 03/23/18 07:31 07:45 Temperature 99.1 F 99.1 F Pulse Rate 80 64 Respiratory 19 14 Rate Blood Pressure (mmHg) O2 Sat by Pulse 97 98 Oximetry - Intake and Output Intake and Output: Intake & Output 03/20/18 03/21/18 03/22/18 03/23/18 11:59 11:59 11:59 11:59 Intake Total 2241 2517.4 1010 Output Total 115 5 2245 1675 Balance -115 146 272.4 -665 Weight 208 lb 8.917 oz 208 lb 15.971 oz 211 lb 3.245 oz 209 lb 0.6 oz Intake: IV Fluids 1139 1475 368 NS 1139 1475 368 Medicated IV 752 947.4 242 Precedex 283 290.4 67 propofol 469 657 175 Oral 0 400 Tube Feeding Flush Amount 95 Asher Irrigate Amount 350 Output: Asher 115 5 2245 1675 Other: Date of Last Bowel 03/22/18 03/22/18 Movement # Bowel Movements 1 1 Estimated Stool Amount Large Medium ADLs: Meal Record Start: 03/20/18 08: 39 Freq: ,,18 Status: Hold Protocol: Created 03/20/18 08:39 System (Rec: 03/20/18 08:39 System ICU-C12) Intake and Output Start: 03/20/18 06: 35 Freq: Status: Active Protocol: Created 03/20/18 06:35 System (Rec: 03/20/18 06:35 System [id number]) Intake and Output Start: 03/20/18 08: 39 Freq: Q1HR Status: Active Protocol: Created 03/20/18 08:39 System (Rec: 03/20/18 08:39 System ICU-C12) Document 03/20/18 09:58 [id number] (Rec: 03/20/18 09:59 [id number] ICU-M23) Document 03/20/18 11:00 [id number] (Rec: 03/20/18 11:03 [id number] ICU-M23) Document 03/20/18 12:00 [id number] (Rec: 03/20/18 12:58 [id number] ICU-M23) Document 03/20/18 13:00 [id number] (Rec: 03/20/18 13:05 [id number] ICU-M23) Document 03/20/18 15:00 [id number] (Rec: 03/20/18 15:16 [id number] ICU-M23) Document 03/20/18 16:00 [id number] (Rec: 03/20/18 16:20 [id number] ICU-M23) Document 03/20/18 17:00 [id number] (Rec: 03/20/18 17:15 [id number] ICU-M23) Document 03/20/18 18:00 [id number] (Rec: 03/20/18 18:05 [id number] ICU-M23) Document 03/20/18 19:00 [id number] (Rec: 03/20/18 19:08 [id number] ICU-M23) Document 03/20/18 21:00 [id number] (Rec: 03/20/18 21:15 [id number] ICU-M23) Document 03/20/18 22:24 [id number] (Rec: 03/20/18 22:24 [id number] ICU-M23) Document 03/21/18 00:41 [id number] (Rec: 03/21/18 00:41 [id number] ICU-M23) Document 03/21/18 02:37 [id number] (Rec: 03/21/18 02:37 [id number] ICU-M22) Document 03/21/18 04:24 [id number] (Rec: 03/21/18 04:24 [id number] ICU-M23) Document 03/21/18 05:35 [id number] (Rec: 03/21/18 05:35 [id number] ICU-M23) Document 03/21/18 06:15 NVH1219 (Rec: 03/21/18 06:15 [id number] ICU-M23) Document 03/21/18 06:54 [id number] (Rec: 03/21/18 06:54 [id number] ICU-M23) Document 03/21/18 08:10 [id number] (Rec: 03/21/18 08:10 [id number] ICU-M23) Document 03/21/18 09:12 [id number] (Rec: 03/21/18 09:12 [id number] ICU-C20) Document 03/21/18 10:01 [id number] (Rec: 03/21/18 10:01 [id number] ICU-C20) Document 03/21/18 11:33 [id number] (Rec: 03/21/18 11:33 [id number] ICU-C20) Document 03/21/18 13:45 HYI1976 (Rec: 03/21/18 13:45 LFD7099 ICU-C20) Document 03/21/18 15:33 RSP1451 (Rec: 03/21/18 15:33 [id number] ICU-C20) Document 03/21/18 16:00 [id number] (Rec: 03/21/18 16:03 [id number] ICU-C20) Document 03/21/18 17:00 WEE0947 (Rec: 03/21/18 17:02 JDM6270 ICU-C12) Document 03/21/18 19:00 [id number] (Rec: 03/21/18 19:14 JJJ7626 ICU-M22) Document 03/21/18 21:00 XZQ2121 (Rec: 03/21/18 21:37 [id number] ICU-M22) Document 03/21/18 22:00 [id number] (Rec: 03/21/18 22:10 [id number] ICU-M23) Document 03/21/18 23:00 KDP1679 (Rec: 03/21/18 23:09 [id number] ICU-M22) Document 03/22/18 00:00 SYR4966 (Rec: 03/22/18 00:38 [id number] ICU-C12) Document 03/22/18 01:00 MRR0418 (Rec: 03/22/18 01:05 [id number] ICU-C12) Document 03/22/18 02:00 MRR0577 (Rec: 03/22/18 02:05 NZS2201 ICU-C12) Document 03/22/18 03:00 HWZ0935 (Rec: 03/22/18 03:07 [id number] ICU-C12) Document 03/22/18 04:00 NTX0767 (Rec: 03/22/18 04:16 IJK0877 ICU-C12) Document 03/22/18 05:00 WML7016 (Rec: 03/22/18 05:30 IRH0687 ICU-C12) Document 03/22/18 06:00 ARR1094 (Rec: 03/22/18 06:28 [id number] ICU-C12) Document 03/22/18 07:00 [id number] (Rec: 03/22/18 07:48 HMF9804 ICU-C15) Document 03/22/18 08:04 SFX2464 (Rec: 03/22/18 08:04 HGR5749 ICU-M23) Document 03/22/18 09:05 LYL4762 (Rec: 03/22/18 09:05 [id number] ICU-M23) Document 03/22/18 10:35 RVG7755 (Rec: 03/22/18 10:35 OMF4280 ICU-C15) Document 03/22/18 11:00 IEO9205 (Rec: 03/22/18 11:06 IMH0190 ICU-C15) Document 03/22/18 13:30 HLI0939 (Rec: 03/22/18 13:30 [id number] ICU-C15) Document 03/22/18 16:36 QZS0168 (Rec: 03/22/18 16:36 [id number] ICU-C15) Document 03/22/18 18:00 [id number] (Rec: 03/22/18 18:19 OZQ3540 ICU-C15) Document 03/22/18 19:00 IUQ1838 (Rec: 03/22/18 19:05 [id number] ICU-C12) Document 03/22/18 20:00 QHO4340 (Rec: 03/22/18 21:35 ERO3779 ICU-C12) Document 03/22/18 21:00 [id number] (Rec: 03/22/18 21:36 [id number] ICU-C12) Document 03/22/18 22:00 FYJ3885 (Rec: 03/22/18 22:18 [id number] ICU-C12) Document 03/22/18 23:00 FDP9590 (Rec: 03/22/18 23:24 [id number] ICU-C12) Document 03/23/18 00:00 IAS4101 (Rec: 03/23/18 00:25 [id number] ICU-C12) Document 03/23/18 01:00 LOT1290 (Rec: 03/23/18 01:03 [id number] ICU-C12) Document 03/23/18 01:51 [id number] (Rec: 03/23/18 01:51 [id number] ICU-C12) Document 03/23/18 03:00 [id number] (Rec: 03/23/18 04:22 [id number] ICU-C12) Document 03/23/18 04:00 JGI5201 (Rec: 03/23/18 04:34 [id number] ICU-C12) Document 03/23/18 06:00 [id number] (Rec: 03/23/18 06:25 [id number] ICU-C12) - Physical Exam General Physical Exam Comment: He is sitting in a chair and is conversational General: No Cyanosis, No Anemia, No Jaundice, No Clubbing Lungs and Chest: Yes: Chest Expansion Full, Chest Expansion Symetrica, Percussion Note Resonant, Vessicular Breath Sounds. No: Crackles, Wheezes Heart Rate and Rhythm: Regular JVP: Not Elevated Additional Cardiovascular: Yes: Normal Heart Sounds. No: Heart Murmur, Pedal Edema Abdominal Exam: Yes: Soft. No: Distention, Abdominal Mass, Abdominal Tenderness , Guarding, Rebound Tenderness - Extremities Cranial Nerves II-XII Intact: Yes Limbs: Normal Power - Neuro Orientation: A/O x3 Speech: Normal Results - Results Lab Results: Laboratory Results - last 24 hr 03/22/18 03/22/18 03/22/18 08:56 12:46 16:45 WBC RBC Hgb Hct MCV MCH MCHC RDW Plt Count MPV Sodium Potassium Chloride Carbon Dioxide Anion Gap BUN Creatinine Est GFR ( Amer) Est GFR (Non-Af Amer) BUN/Creatinine Ratio Glucose POC Glucose (mg/dL) 228 H 167 H 141 H Calcium Magnesium 03/22/18 03/23/18 03/23/18 21:22 05:30 05:30 WBC 11.9 H RBC 4.61 Hgb 14.8 Hct 45 MCV 97 H MCH 32 H MCHC 33 RDW 15 Plt Count 148 L MPV 8.1 Sodium 137 Potassium 3.5 Chloride 101 Carbon Dioxide 26 Anion Gap 10 BUN 21 Creatinine 0.75 Est GFR ( Amer) 129.4 Est GFR (Non-Af Amer) 107.0 BUN/Creatinine Ratio 28.0 H Glucose 182 H POC Glucose (mg/dL) 129 H Calcium 9.1 Magnesium 2.0 03/23/18 07:50 WBC RBC Hgb Hct MCV MCH MCHC RDW Plt Count MPV Sodium Potassium Chloride Carbon Dioxide Anion Gap BUN Creatinine Est GFR ( Amer) Est GFR (Non-Af Amer) BUN/Creatinine Ratio Glucose POC Glucose (mg/dL) 171 H Calcium Magnesium Radiology Results: Patient Name: BISI JUAREZ Medical Record#: [id number] Ordering Physician: Alexei Sinclair MD Acct.#: [id number] : 1960 Age: 58 Sex: M Location: [facility] Exam Date: 03/21/18849 ADM Status: ADM IN Order Information: CHEST AP PORTABLE Accession Number: [id number] CPT: 71130 INDICATION: Advancement of orogastric tube COMPARISON: Same day chest radiograph acquired at 0644 hours TECHNIQUE: Single AP portable view of the chest was obtained at 0858 hours. FINDINGS: Image quality is compromised due to the relative inferiority of a portable chest x-ray. There is been interval advancement of the gastric tube with the tip now terminating over the gastric fundus. The endotracheal tube remains appropriately positioned approximately 4.5 cm above the olesya. The degree of mild cardiomegaly is unchanged from the previous chest x-ray. The lungs are grossly clear. IMPRESSION: Interval advancement of the gastric tube with the tip now terminating over the gastric fundus. <Electronically signed by Alexei Sinclair MD in [place]> 03/21/18928 Dictated By: Alexei Sinclair MD Dictated Date/Time: 03/21/18928 Transcribed Date/Time: 03/21/18915 Copy to: CC:Oh Lynne MD; Sen Delgadillo DO; Luca Mora MD; Luann Schroeder DO; Fahad Delgadillo MD; Alexei Sinclair MD Imaging - [facility] Imaging - [facility] Imaging - [facility] [address] [address] ph ([phone]) ph ([phone]) ph ([phone]) This report is only to be considered final once signed by the Provider(s) as displayed in the "<Electronically Signed by >" field (s). Absence of a signature indicates the report is in a draft status and still needs to be finalized. In the event this document was created by someone other than the signing Provider, the individual initiating the document will be listed in the "Entered by:" or "Dictated by:" hunt. 1 of 1 EKG Report: 03/20/18 EKG Rate 82 ME 177 QTc 491 QRS axis 2 Sinus rhythm - prolonged QTc Other Results/Reports: Transthoracic echocardiogramor Conclusions Moderate concentric left ventricular hypertrophy is observed. Moderate global hypokinesis of the left ventricle is observed. There is moderately decreased left ventricular systolic function. The estimated ejection fraction is 40-45%. The left atrium is moderately dilated. There is no evidence of aortic stenosis. There is moderate aortic regurgitation.In some views there could be Severe AR There is a trace of mitral regurgitation. There is no evidence of tricuspid valve regurgitation. Assessment - Problem List Assessment: Patient Problems Acute respiratory failure (Acute) Anaphylactic reaction (Acute) Angioedema (Acute) Chest pain (Acute) Diarrhea (Acute) Shellfish allergy (Acute) Aortic regurgitation (Chronic) Asthma (Chronic) Essential hypertension (Chronic) Hyperlipidemia (Chronic) PTSD (post-traumatic stress disorder) (Chronic) Peripheral autonomic neuropathy due to diabetes mellitus (Chronic) Primary hypothyroidism (Chronic) Thoracic aortic aneurysm (Chronic) Tobacco abuse (Chronic) Type 2 diabetes mellitus (Chronic) Plan: Shellfish allergy (Acute),Acute respiratory failure (Acute)Anaphylactic reaction (Acute)Angioedema (Acute) He has recovered from this. He is now extubated, but breathing with nasal cannula. I will wean him from this today Chest pain (Acute) This has gone - the cause is not clear. However, he has no evidence of any acute ischemic event. Diarrhea (Acute) He has had this intermittently as an out patient. I suspect the current diarrhea is secondary to antibacterial treatment. Aortic regurgitation (Chronic)Thoracic aortic aneurysm (Chronic) This requires a cardiac surgery opinion after discharge Asthma (Chronic) His lungs sound clear Essential hypertension (Chronic) His BP varies from on target, to a little high Hyperlipidemia (Chronic) We will restore his medication PTSD (post-traumatic stress disorder) (Chronic) This may be exacerbated - I will have a social worker health services visit Peripheral autonomic neuropathy due to diabetes mellitus (Chronic) no new problems Primary hypothyroidism (Chronic) continue current Rx Tobacco abuse (Chronic) For counseling Type 2 diabetes mellitus (Chronic) His glycemic control is good. I will transfer him to a general medical bed off telemetry. He will have his Asher catheter removed. We will wean him off the O2 NC. I will check his stool for C. diff if his diarrhea continues. I discussed with him possible discharge when he is fully autonomous.
[2018-03-23] MEDS ORDERED: Loperamide CAP* 2 MG PO PRN (08:29)
[2018-03-23] MEDS: predniSONE TAB* 20 MG PO SCH ×2 (08:38→23:42)
--- NOTE | 2018-03-23 11:57 | PN ---
Progress Note - Progress Note Date of Service: 03/23/18 Note: Progress Note -- Critical Care 24 hour events: -extubated, awake, alet. tolerting po intake. no stridor or resp distress. tmax 99. making urine. Tele: NSR Vitals: Vital Signs Temp 99.7 F 03/23/18 11:45 Pulse 75 03/23/18 11:01 Resp 19 03/23/18 11:01 BP 131/70 03/23/18 11:00 Pulse Ox 97 03/23/18 11:01 Intake & Output 03/22/18 03/23/18 03/23/18 18:59 06:59 18:59 Intake Total 610 400 520 Output Total 1525 715 100 Balance -915 -315 420 Weight 95.8 kg 94.818 kg Intake: IV Fluids 368 NS 368 Medicated IV 242 Precedex 67 propofol 175 Oral 400 520 Output: Chaudhary 1525 715 100 Other: Date of Last Bowel 03/22/18 03/22/18 Movement # Bowel Movements 1 1 Estimated Stool Amount Medium Medium O2/Vent: NC Infusions: heplock Current Medications: Albuterol/Ipratropium (Duoneb (Albuterol 2.5 Mg/Ipratropium 0.5 Mg)) 1 neb INH [id number] AWAKE PRN PRN Reason: sob/wheexing Amlodipine Besylate (Norvasc Tab*) 10 mg PO Q24H [facility] Last Admin: 03/22/18 22:11 Dose: 10 mg Dextrose (D50w Syringe 50 Ml*) 12.5 gm IV PUSH .FOR FS < 60 - SS PRN PRN Reason: FS < 60 Escitalopram Oxalate (Lexapro (Nf)) 20 mg PO BEDTIME [facility] Famotidine (Pepcid Tab*) 20 mg PO DAILY [facility] Last Admin: 03/23/18 08:09 Dose: 20 mg Hydralazine HCl (Apresoline Tab*) 50 mg PO QID [facility] Last Admin: 03/23/18 08:09 Dose: 50 mg Insulin Human Lispro (Humalog*) 0 units SUBCUT ACHS [facility]; Protocol Last Admin: 03/23/18 11:30 Dose: 15 units Levothyroxine Sodium (Synthroid Tab*) 125 mcg PO DAILY@0600 [facility] Lisinopril (Prinivil Tab*) 5 mg PO DAILY [facility] Last Admin: 03/23/18 08:09 Dose: 5 mg Loperamide HCl (Imodium Cap*) 4 mg PO .SEE DIRECTIONS PRN PRN Reason: DIARRHEA Last Admin: 03/23/18 08:38 Dose: 4 mg Metformin HCl (Glucophage*) 1,000 mg PO 0800,1700 [facility] Metoprolol Tartrate (Lopressor Tab*) 25 mg PO BID [facility] Last Admin: 03/23/18 08:10 Dose: 25 mg Mometasone Furoate/Formoterol Fumar (Dulera 200/5 Mdi*) 2 puff INH BID [facility] Prednisone (Deltasone Tab*) 20 mg PO BID [facility] Last Admin: 03/23/18 08:38 Dose: 20 mg Physical Exam: General: awake, alert, no distress Head: normocephalic, atraumatic HEENT: no pallor, no icterus, moist mucous membranes, no swelling noted in palate Neck: soft, supple, no jvd CVS: normal rate, regular, no murmur Resp: bilateral air entry, no rhales, no wheeze, no rhonchi, no acc muscle use Abdomen: soft, nontender, nondistended, bowel sounds present Ext: pulses+, warm, no edema Skin: intact Neuro: awake, alert, moves all ext Labs: Laboratory Results - last 24 hr 03/22/18 03/22/18 03/22/18 12:46 16:45 21:22 WBC RBC Hgb Hct MCV MCH MCHC RDW Plt Count MPV Sodium Potassium Chloride Carbon Dioxide Anion Gap BUN Creatinine Est GFR ( Amer) Est GFR (Non-Af Amer) BUN/Creatinine Ratio Glucose POC Glucose (mg/dL) 167 H 141 H 129 H Hemoglobin A1c Calcium Magnesium 03/23/18 03/23/18 03/23/18 05:30 05:30 05:30 WBC 11.9 H RBC 4.61 Hgb 14.8 Hct 45 MCV 97 H MCH 32 H MCHC 33 RDW 15 Plt Count 148 L MPV 8.1 Sodium 137 Potassium 3.5 Chloride 101 Carbon Dioxide 26 Anion Gap 10 BUN 21 Creatinine 0.75 Est GFR ( Amer) 129.4 Est GFR (Non-Af Amer) 107.0 BUN/Creatinine Ratio 28.0 H Glucose 182 H POC Glucose (mg/dL) Hemoglobin A1c 5.8 H Calcium 9.1 Magnesium 2.0 03/23/18 03/23/18 07:50 11:24 WBC RBC Hgb Hct MCV MCH MCHC RDW Plt Count MPV Sodium Potassium Chloride Carbon Dioxide Anion Gap BUN Creatinine Est GFR ( Amer) Est GFR (Non-Af Amer) BUN/Creatinine Ratio Glucose POC Glucose (mg/dL) 171 H 383 H Hemoglobin A1c Calcium Magnesium Imaging: cxr 03/20 - ngt in place, no infiltrates cxr 03/21 - ngt in stomach now, ett above olesya, no clear focal infiltrate noted Assessment: 58y M w/pmhx of CAD, DM, Ascending Aortic Aneurysm with AI, hypothyroidism, HTN, asthma, h/o of distant GI bleed, Depression/PTSD; patient came to [place] ER for complaints of Chest pain and SOB on 03/19. During Er evaluation he was found to have trop 0.55, without acute EKG changes consistent with AMI. He was going to be transferred to [facility] because his previous cardiac workup and astrochemist are here. While in [place] he may have eating a contaminated/wrong food with seafood it seems and developed an allergic reaction , where he was treated with IV pepcid/benadryl/steroids. He was deemed stable and transferred via EMS to [facility]. On arrival to [facility] he was short of breath, in distress, stridorous with edema in posterior pharynx. Given emergent nature he was given medications and intubated for angioedema and airway compromise by anesthesiology. -Acute Respiratory Failure, unspecified 2/2 to angioedema, intubated for airway protection -Anaphylaxis/Angioedema 2/2 to seafood -Chest pain -Ascending Thoracic aortic aneurysm with associated AI CAD DM Depression/PTSD Plan: Neuro- awake/alert. delirium prec. CVS- BP stable. HR stable. off ivf. TTE with mod-severe AI, unclear Aortic root size. -Known Asc Aneurysm with AI. cont metoprolol, po hydralzine, norvasc and ACEI. Angioedema likely not ACEI, was given seafood. Resp- on NC, no distress, angioedema improved. change steroids to PO prednisone. ID- tmax 99.7 wbc 11. monitoring off abx. GI- PO diabetic/cardiac diet. GI proph. Renal- Cr okay. K okay, no acidosis. d/c chaudhary+ Heme- hg normal, plt normal. DVT proph. Endo- started on metformin Musculsk- pressure ulcer prophylaxis. oob to chair Wounds- none Nutrition- cardiac/diabetic diet DVT prophylaxis: scd GI prophylaxis: h2b Central Line: no Arterial Line: no Chaudhary Cathetor: d/c Disposition: transfer to medical floor; resp status stable, no critical care issue further, reconsult as needed. Code Status: full code Luca Mora MD Outdoor Studies Director (Electronically Signed)
[2018-03-23] MEDS: Mometasone/Formoter 200/5 MDI INH SCH ×2 (14:25→20:53)
--- NOTE | 2018-03-23 15:09 | PTEDU ---
Patient Name: PEDRITO JUAREZ PEDRITO JUAREZ selected video: Abdominal Aortic Aneurysm - Open Repair to view on 03/23/2018 at 3:08:11 PM from [id number]
--- NOTE | 2018-03-23 15:16 | PTEDU ---
Patient Name: PEDRITO JUAREZ PEDRITO JUAREZ selected video: Abdominal Aortic Aneurysm - Open Repair to view on 03/23/2018 at 3:15:04 PM from [id number]
[2018-03-23] MEDS: Collagenase 250 MG/GM OINT* 30 GM TOPICAL SCH (15:19)
--- NOTE | 2018-03-23 15:44 | PTEDU ---
Patient Name: PEDRITO JUAREZ TYLER REJIPEDRITO selected video: Abdominal Aortic Aneurysm - Open Repair to view on 03/23/2018 at 3:43:26 PM from [id number]
--- NOTE | 2018-03-23 16:28 | PTEDU ---
Patient Name: PEDRITO JUAREZ TYLER REJIPEDRITO selected video: Abdominal Aortic Aneurysm - Open Repair to view on 03/23/2018 at 4:27:18 PM from [id number]
[2018-03-23] MEDS: metFORMIN* 1,000 MG TAB PO SCH (17:45)
--- NOTE | 2018-03-23 18:24 | PTEDU ---
Patient Name: PEDRITO JUAREZ TYLER REJIPEDRITO selected video: Abdominal Aortic Aneurysm - Open Repair to view on 03/23/2018 at 6:23:49 PM from [id number]
--- NOTE | 2018-03-23 18:36 | PTEDU ---
Patient Name: PEDRITO JUAREZ TYLER REJIPEDRITO selected video: Abdominal Aortic Aneurysm - Open Repair to view on 03/23/2018 at 6:35:59 PM from [id number]
--- NOTE | 2018-03-23 18:43 | PTEDU ---
Patient Name: PEDRITO JUAREZ TYLER REJIPEDRITO MOBLEY selected video: Foot Care for People with Diabetes to view on 03/23/2018 at 6: 43:03 PM from [id number]
--- NOTE | 2018-03-23 18:54 | PTEDU ---
Patient Name: PEDRITO JUAREZ PEDRITO JUAREZ selected video: Hypothyroidism to view on 03/23/2018 at 6:53:18 PM from [facility] [id number]
--- NOTE | 2018-03-23 19:03 | PTEDU ---
Patient Name: PEDRITO JUAREZ PEDRITO JUAREZ selected video: Hypothyroidism to view on 03/23/2018 at 7:02:58 PM from [facility]_ [id number]
--- NOTE | 2018-03-23 19:14 | PTEDU ---
Patient Name: PEDRITO JUAREZ PEDRITO JUAREZ selected video: Everyone Can Carbohydrate Count to view on 03/23/2018 at 7:13: 04 PM from [id number]
--- NOTE | 2018-03-23 19:35 | PTEDU ---
Patient Name: PEDRITO JUAREZ PEDRITO JUAREZ selected video: Hypothyroidism to view on 03/23/2018 at 7:34:42 PM from [facility]_ [id number]
[2018-03-23] MEDS: CMCS Escitalopram (NF) 10 MG TAB PO SCH (23:42)
[2018-03-23] MEDS: amLODIPine TAB* 5 MG PO SCH (23:49)
[2018-03-24 05:47] LABS: ABS Basophils 0 10^3/ul (0-0.2); ABS Eosinophils 0 10^3/ul (0-0.6); ABS Lymphocytes 1.4 10^3/ul (1.0-4.8); ABS Monocytes 0.7 10^3/ul (0-0.8); ABS Neutrophils 8.2 10^3/ul (1.5-7.7); ABS Nucleated RBC 0 10^3/ul; Eosinophil % 0 %; Hematocrit 43 % (42-52); Hemoglobin 14.6 g/dl (14.0-18.0); Lymphocyte % 13.9 %; Mean Corpuscular HGB Conc 34 g/dl (31-36); Mean Corpuscular Hemoglobin 32 pg (27-31); Mean Corpuscular Volume 96 fL (80-94); Nucleated Red Blood Cells % 0; Platelet Count 137 10^3/ul (150-450); Red Cell Distribution Width 15 % (10.5-15); White Blood Count 10.3 10^3/ul (3.5-10.8)
[2018-03-24 06:00] LABS: EGFR Non-African American 115.8 (>60)
[2018-03-24] MEDS: Levothyroxine TAB* 125 MCG TAB PO SCH (06:26)
--- NOTE | 2018-03-24 08:22 | PN ---
Subjective - Subjective Reason for Note: Progress Note History: He continues to have a lot of sinus drainage and coughing. He is weak and has not yet walked independently. He is concerned about the health and safety of his living situation - infested with cockroaches and bed bugs. His diabetes is poorly controlled as he is on steroids. Active Problems: Active Problems Anaphylactic reaction (Acute) T78.2XXA Cough (Acute) R05 Diarrhea (Acute) R19.7 Shellfish allergy (Acute) Z91.013 Aortic regurgitation (Chronic) I35.1 Asthma (Chronic) J45.909 Essential hypertension (Chronic) I10 Hyperlipidemia (Chronic) E78.5 PTSD (post-traumatic stress disorder) (Chronic) F43.10 Peripheral autonomic neuropathy due to diabetes mellitus (Chronic) E11.43 Primary hypothyroidism (Chronic) E03.9 Thoracic aortic aneurysm (Chronic) I71.2 Tobacco abuse (Chronic) Z72.0 Type 2 diabetes mellitus (Chronic) Current Medications: Current Medications Albuterol/Ipratropium (Duoneb (Albuterol 2.5 Mg/Ipratropium 0.5 Mg)) 1 neb INH [id number] AWAKE PRN PRN Reason: sob/wheexing Amlodipine Besylate (Norvasc Tab*) 10 mg PO Q24H [facility] Last Admin: 03/23/18 23:49 Dose: 10 mg Collagenase (Santyl 250 Mg/Gm Oint*) 1 applic TOPICAL DAILY [facility] Last Admin: 03/23/18 15:19 Dose: 1 applic Dextrose (D50w Syringe 50 Ml*) 12.5 gm IV PUSH .FOR FS < 60 - SS PRN PRN Reason: FS < 60 Escitalopram Oxalate (Lexapro (Nf)) 20 mg PO BEDTIME [facility] Last Admin: 03/23/18 23:42 Dose: 20 mg Famotidine (Pepcid Tab*) 20 mg PO DAILY [facility] Last Admin: 03/23/18 08:09 Dose: 20 mg Hydralazine HCl (Apresoline Tab*) 50 mg PO QID [facility] Last Admin: 03/23/18 23:52 Dose: 50 mg Insulin Human Lispro (Humalog*) 0 units SUBCUT ACHS [facility]; Protocol Last Admin: 03/23/18 23:39 Dose: 3 units Levothyroxine Sodium (Synthroid Tab*) 125 mcg PO DAILY@0600 [facility] Last Admin: 03/24/18 06:26 Dose: 125 mcg Lisinopril (Prinivil Tab*) 5 mg PO DAILY [facility] Last Admin: 03/23/18 08:09 Dose: 5 mg Loperamide HCl (Imodium Cap*) 4 mg PO .SEE DIRECTIONS PRN PRN Reason: DIARRHEA Last Admin: 03/23/18 08:38 Dose: 4 mg Metformin HCl (Glucophage*) 1,000 mg PO 0800,1700 [facility] Last Admin: 03/23/18 17:45 Dose: 1,000 mg Metoprolol Tartrate (Lopressor Tab*) 25 mg PO BID [facility] Last Admin: 03/23/18 23:49 Dose: 25 mg Mometasone Furoate/Formoterol Fumar (Dulera 200/5 Mdi*) 2 puff INH BID [facility] Last Admin: 03/23/18 20:53 Dose: 2 puff Prednisone (Deltasone Tab*) 20 mg PO BID [facility] Last Admin: 03/23/18 23:42 Dose: 20 mg Home Medications: Home Medications Medication Instructions Recorded Confirmed Type Folic Acid TAB* [Folvite TAB*] 1 mg PO DAILY 08/26/17 01/11/18 History Gabapentin CAP(*) [Neurontin 300 300 mg PO TID 08/26/17 01/11/18 History CAP(*)] Levothyroxine TAB* [Synthroid TAB*] 125 mcg PO DAILY 08/26/17 01/11/18 History Metoprolol Succinate XL TAB* 50 mg PO DAILY 08/26/17 01/11/18 History [Toprol XL TAB*] Simvastatin [Zocor] 20 mg PO DAILY 08/26/17 01/11/18 History Sitagliptin Phosphate [Januvia] 100 mg PO DAILY 08/26/17 01/11/18 History amLODIPine TAB* [Norvasc 5 mg TAB*] 10 mg PO DAILY 08/26/17 01/11/18 History traZODone TAB* [Desyrel TAB*] 150 mg PO BEDTIME 08/26/17 01/18/18 History Albuterol 2.5MG/3ML (0.083%)* 2.5 mg INH Q6H PRN 12/10/17 01/11/18 History [Ventolin 2.5 MG/3 ML NEB.ASIM*] Albuterol inh POWDER (NF) [Proair 2 puff INH QID PRN 12/10/17 01/11/18 History Respiclick] Aspirin TAB* [Aspirin 325 MG TAB*] 325 mg PO DAILY 12/10/17 01/11/18 History Cetirizine* [ZyrTEC 10 MG TAB*] 10 mg PO DAILY 12/10/17 01/11/18 History EPINEPHrine [Epipen 2-Delon] 0.3 mg IM ONCE PRN 12/10/17 01/11/18 History Econazole 1% CREAM (NF) [Econazole 1 applic TOPICAL BID PRN 12/10/17 01/11/18 History 1 % CREAM (NF)] Escitalopram Oxalate [Lexapro 20 20 mg PO DAILY 12/10/17 01/11/18 History mg] Fluocinonide 0.05% CM (NF) [Lidex 1 applic TOPICAL TID PRN 12/10/17 01/11/18 History 0.05% CREAM (NF)] Ipratropium Br (Nf)0.03% Nasal 2 spray BOTH NARES .3-4XDAILY MAX 12/10/17 History [Ipratropium Coram] 4DAYS PRN Loperamide CAP* [Imodium CAP*] 2 mg PO Q6H PRN 12/10/17 01/11/18 History Meloxicam 15 mg PO DAILY 12/10/17 01/18/18 History Nitroglycerin [Nitrostat] 0.3 mg SL .Q5MIN UP TO 3X PRN 12/10/17 01/11/18 History [place]-3 Acid Ethyl Esters [Lovaza 2 cap PO BID 12/10/17 01/11/18 History 1 gm] Omeprazole CAP* [Prilosec CAP* 20 20 mg PO BID 12/10/17 01/18/18 History MG] Quinapril HCl 20 mg PO DAILY 12/10/17 01/11/18 History Tizanidine HCl [Zanaflex] 4 mg PO BID 12/10/17 01/11/18 History Zolpidem TAB* [Ambien TAB*] 10 mg PO BEDTIME 12/10/17 01/11/18 History glipiZIDE TAB* [Glucotrol TAB*] 5 mg PO BID 12/10/17 01/11/18 History metFORMIN* [Glucophage 1000 MG TAB 1,000 mg PO BID 12/10/17 01/11/18 History *] Calcium Carbonate/Vitamin D3 1 tab PO DAILY 01/11/18 01/11/18 History [Calcium 500+D 500-200 mg-Unit] Sildenafil Citrate [Viagra] 100 mg PO DAILY PRN 01/11/18 01/11/18 History Allergies: Allergies Allergy/AdvReac Type Severity Reaction Status Date / Time atorvastatin [From Lipitor] Allergy Anaphylatic Verified 12/10/17 16:03 Shock fenofibrate [From Tricor] Allergy Unknown Verified 03/20/18 15:30 Reaction Details iodine Allergy Anaphylatic Verified 12/10/17 16:03 Shock shellfish derived Allergy Anaphylatic Verified 03/21/18 11:19 Shock Sulfa (Sulfonamide Allergy Anaphylatic Verified 12/10/17 16:03 Antibiotics) Shock Objective - Vital Signs Vital Signs: Vital Signs 03/23/18 03/23/18 03/23/18 08:30 08:31 08:45 Temperature 99.3 F 99.3 F Pulse Rate 63 64 75 Respiratory 20 20 24 Rate Blood Pressure 135/71 (mmHg) O2 Sat by Pulse 99 100 97 Oximetry 03/23/18 03/23/18 03/23/18 09:00 09:01 09:15 Temperature Pulse Rate 76 79 78 Respiratory 19 23 15 Rate Blood Pressure 138/80 (mmHg) O2 Sat by Pulse 95 96 97 Oximetry 03/23/18 03/23/18 03/23/18 09:30 09:31 09:45 Temperature Pulse Rate 76 80 85 Respiratory 16 21 22 Rate Blood Pressure 116/70 (mmHg) O2 Sat by Pulse 94 94 94 Oximetry 03/23/18 03/23/18 03/23/18 10:00 10:01 10:15 Temperature Pulse Rate 75 81 77 Respiratory 16 23 24 Rate Blood Pressure 111/54 (mmHg) O2 Sat by Pulse 95 93 94 Oximetry 03/23/18 03/23/18 03/23/18 10:30 10:31 10:45 Temperature Pulse Rate 78 78 78 Respiratory 26 24 18 Rate Blood Pressure 123/69 (mmHg) O2 Sat by Pulse 94 94 97 Oximetry 03/23/18 03/23/18 03/23/18 10:53 11:00 11:01 Temperature Pulse Rate 78 75 Respiratory 26 18 19 Rate Blood Pressure 131/70 (mmHg) O2 Sat by Pulse 98 97 Oximetry 03/23/18 03/23/18 03/23/18 11:15 11:30 11:45 Temperature 99.7 F Pulse Rate 80 79 82 Respiratory 25 21 22 Rate Blood Pressure (mmHg) O2 Sat by Pulse 93 95 94 Oximetry 03/23/18 03/23/18 03/23/18 12:00 12:01 12:15 Temperature Pulse Rate 77 81 86 Respiratory 18 19 23 Rate Blood Pressure 135/69 (mmHg) O2 Sat by Pulse 96 94 98 Oximetry 03/23/18 03/23/18 03/23/18 12:56 15:12 19:26 Temperature 97.9 F 98.3 F 99.1 F Pulse Rate 72 64 90 Respiratory 20 16 17 Rate Blood Pressure 120/60 120/51 112/58 (mmHg) O2 Sat by Pulse 96 98 94 Oximetry 03/23/18 03/23/18 03/23/18 20:00 20:54 23:15 Temperature 97.3 F Pulse Rate 81 84 Respiratory 18 18 18 Rate Blood Pressure 141/62 (mmHg) O2 Sat by Pulse 95 97 Oximetry 03/23/18 03/24/18 03/24/18 23:48 03:46 07:22 Temperature 98.4 F 97.3 F 98.0 F Pulse Rate 77 71 76 Respiratory 17 16 Rate Blood Pressure 117/60 101/48 154/71 (mmHg) O2 Sat by Pulse 97 96 96 Oximetry - Intake and Output Intake and Output: Intake & Output 03/21/18 03/22/18 03/23/18 03/24/18 11:59 11:59 11:59 11:59 Intake Total 2241 2517.4 1530 460 Output Total 2094 2244 1775 Balance 146 272.4 -245 460 Weight 208 lb 15.971 oz 211 lb 3.245 oz 209 lb 0.6 oz Intake: IV Fluids 1139 1475 368 NS 1139 1475 368 Medicated IV 752 947.4 242 Precedex 283 290.4 67 propofol 469 657 175 Oral 0 920 460 Tube Feeding Flush Amount 95 Asher Irrigate Amount 350 Output: Asher 2094 2244 177 Other: Estimated Void Medium Date of Last Bowel 03/22/18 03/22/18 Movement # Bowel Movements 1 1 0 Estimated Stool Amount Large Medium # Voids 1 ADLs: Meal Record Start: 03/20/18 08: 39 Freq: 09,13,18 Status: Inactive Protocol: Created 03/20/18 08:39 System (Rec: 03/20/18 08:39 System ICU-C12) ADLs: Meal Record Start: 03/23/18 12: 56 Freq: DAILY@0900,1400,1800 Status: Active Protocol: Created 03/23/18 12:56 [id number] (Rec: 03/23/18 12:56 [id number] MED-M09) Document 03/23/18 13:50 [id number] (Rec: 03/23/18 13:52 [id number] MED-C11) Document 03/23/18 18:00 [id number] (Rec: 03/23/18 18:29 [id number] MED-C05) Intake and Output Start: 03/20/18 06: 35 Freq: Status: Active Protocol: Created 03/20/18 06:35 System (Rec: 03/20/18 06:35 System EDRM-C12) Intake and Output Start: 03/20/18 08: 39 Freq: 06,14,2200 Status: Inactive Protocol: Created 03/20/18 08:39 System (Rec: 03/20/18 08:39 System ICU-C12) Document 03/20/18 09:58 [id number] (Rec: 03/20/18 09:59 [id number] ICU-M23) Document 03/20/18 11:00 EAO9776 (Rec: 03/20/18 11:03 [id number] ICU-M23) Document 03/20/18 12:00 QTE3373 (Rec: 03/20/18 12:58 [id number] ICU-M23) Document 03/20/18 13:00 GZI0437 (Rec: 03/20/18 13:05 OIV1018 ICU-M23) Document 03/20/18 15:00 IQT0671 (Rec: 03/20/18 15:16 MQO9711 ICU-M23) Document 03/20/18 16:00 IUO4351 (Rec: 03/20/18 16:20 GMC5187 ICU-M23) Document 03/20/18 17:00 ADM7619 (Rec: 03/20/18 17:15 [id number] ICU-M23) Document 03/20/18 18:00 PCF7079 (Rec: 03/20/18 18:05 MIH9903 ICU-M23) Document 03/20/18 19:00 NJK6668 (Rec: 03/20/18 19:08 LAH3989 ICU-M23) Document 03/20/18 21:00 LUK8158 (Rec: 03/20/18 21:15 VBK7657 ICU-M23) Document 03/20/18 22:24 WHY2289 (Rec: 03/20/18 22:24 TTI7544 ICU-M23) Document 03/21/18 00:41 POJ5100 (Rec: 03/21/18 00:41 RER3213 ICU-M23) Document 03/21/18 02:37 TRE1797 (Rec: 03/21/18 02:37 EEJ0812 ICU-M22) Document 03/21/18 04:24 CUL2436 (Rec: 03/21/18 04:24 OSK5251 ICU-M23) Document 03/21/18 05:35 SJT0715 (Rec: 03/21/18 05:35 SDH5597 ICU-M23) Document 03/21/18 06:15 KNP7685 (Rec: 03/21/18 06:15 URG5767 ICU-M23) Document 03/21/18 06:54 GEU0844 (Rec: 03/21/18 06:54 JDN1044 ICU-M23) Document 03/21/18 08:10 MSE1011 (Rec: 03/21/18 08:10 OWO1986 ICU-M23) Document 03/21/18 09:12 TCH8240 (Rec: 03/21/18 09:12 VRC8535 ICU-C20) Document 03/21/18 10:01 JDN9398 (Rec: 03/21/18 10:01 QBQ4244 ICU-C20) Document 03/21/18 11:33 ONA4917 (Rec: 03/21/18 11:33 JSU3120 ICU-C20) Document 03/21/18 13:45 CGA7853 (Rec: 03/21/18 13:45 IPB9954 ICU-C20) Document 03/21/18 15:33 WRZ2640 (Rec: 03/21/18 15:33 UTN8355 ICU-C20) Document 03/21/18 16:00 KGD4047 (Rec: 03/21/18 16:03 ZEG0038 ICU-C20) Document 03/21/18 17:00 ILT3781 (Rec: 03/21/18 17:02 QAX9624 ICU-C12) Document 03/21/18 19:00 HBY1645 (Rec: 03/21/18 19:14 QLG7577 ICU-M22) Document 03/21/18 21:00 MCX1343 (Rec: 03/21/18 21:37 WEJ9378 ICU-M22) Document 03/21/18 22:00 CGO8370 (Rec: 03/21/18 22:10 KJU5012 ICU-M23) Document 03/21/18 23:00 AUL9526 (Rec: 03/21/18 23:09 ZQZ7975 ICU-M22) Document 03/22/18 00:00 ZPG9860 (Rec: 03/22/18 00:38 HMK5994 ICU-C12) Document 03/22/18 01:00 ZBH7755 (Rec: 03/22/18 01:05 WDP2450 ICU-C12) Document 03/22/18 02:00 EKM5236 (Rec: 03/22/18 02:05 UMA4595 ICU-C12) Document 03/22/18 03:00 VGR8315 (Rec: 03/22/18 03:07 LLE3311 ICU-C12) Document 03/22/18 04:00 GHV4611 (Rec: 03/22/18 04:16 OKB1124 ICU-C12) Document 03/22/18 05:00 YFF4308 (Rec: 03/22/18 05:30 KGS9422 ICU-C12) Document 03/22/18 06:00 JDA3981 (Rec: 03/22/18 06:28 UMD6796 ICU-C12) Document 03/22/18 07:00 FAT8581 (Rec: 03/22/18 07:48 CIN8877 ICU-C15) Document 03/22/18 08:04 JTY9170 (Rec: 03/22/18 08:04 BRJ9336 ICU-M23) Document 03/22/18 09:05 NWR2410 (Rec: 03/22/18 09:05 PAN4492 ICU-M23) Document 03/22/18 10:35 ZGO3175 (Rec: 03/22/18 10:35 KSC0817 ICU-C15) Document 03/22/18 11:00 LYL1265 (Rec: 03/22/18 11:06 MNK0176 ICU-C15) Document 03/22/18 13:30 GHJ1436 (Rec: 03/22/18 13:30 [id number] ICU-C15) Document 03/22/18 16:36 YDB8430 (Rec: 03/22/18 16:36 EOJ2356 ICU-C15) Document 03/22/18 18:00 XKM6362 (Rec: 03/22/18 18:19 WGK9790 ICU-C15) Document 03/22/18 19:00 SGP8561 (Rec: 03/22/18 19:05 OPG5223 ICU-C12) Document 03/22/18 20:00 AXM3823 (Rec: 03/22/18 21:35 XHE7317 ICU-C12) Document 03/22/18 21:00 LFV8129 (Rec: 03/22/18 21:36 NAJ3026 ICU-C12) Document 03/22/18 22:00 JFY6104 (Rec: 03/22/18 22:18 WFB8608 ICU-C12) Document 03/22/18 23:00 ZLU8621 (Rec: 03/22/18 23:24 ERR5835 ICU-C12) Document 03/23/18 00:00 OSA9138 (Rec: 03/23/18 00:25 WRK4427 ICU-C12) Document 03/23/18 01:00 SKP6784 (Rec: 03/23/18 01:03 JKS3581 ICU-C12) Document 03/23/18 01:51 MIH9141 (Rec: 03/23/18 01:51 OXW8071 ICU-C12) Document 03/23/18 03:00 PCE7514 (Rec: 03/23/18 04:22 [id number] ICU-C12) Document 03/23/18 04:00 QHJ4236 (Rec: 03/23/18 04:34 QAL3253 ICU-C12) Document 03/23/18 06:00 HFW9143 (Rec: 03/23/18 06:25 QIJ0511 ICU-C12) Document 03/23/18 08:51 FWL8587 (Rec: 03/23/18 08:51 QGA7177 ICU-C15) Document 03/23/18 09:00 IJM9113 (Rec: 03/23/18 10:08 MRG2465 ICU-C15) Document 03/23/18 10:00 HGE0419 (Rec: 03/23/18 10:08 BAG2269 ICU-C15) Intake and Output Start: 03/23/18 12: 56 Freq: DAILY@0600,1400,2200 Status: Active Protocol: Created 03/23/18 12:56 ENK7002 (Rec: 03/23/18 12:56 HKN2538 MED-M09) Document 03/23/18 13:50 KTM7374 (Rec: 03/23/18 13:52 PTB4176 MED-C11) Document 03/23/18 20:47 HBK4044 (Rec: 03/23/18 20:47 DHZ5675 MED-C11) Document 03/24/18 06:00 WVX2012 (Rec: 03/24/18 06:11 [id number] MED-C11) - Physical Exam General Physical Exam Comment: warm and well perfused. Clear sputum General: No Cyanosis, No Anemia, No Jaundice, No Clubbing Lungs and Chest: Yes: Chest Expansion Full, Chest Expansion Symetrica, Percussion Note Resonant, Vessicular Breath Sounds, Wheezes. No: Crackles, Respiratory Distress, Use of Accessory Muscles Heart Rate and Rhythm: Regular [place] Beat: Non Displaced Additional Cardiovascular: Yes: Normal Heart Sounds. No: Heart Murmur, Pedal Edema Abdominal Exam: Yes: Soft, Bowel Sounds Present. No: Distention, Abdominal Tenderness - Neuro Orientation: A/O x3 Psychiatric: Anxious Speech: Normal Results - Results Lab Results: Laboratory Results - last 24 hr 03/23/18 03/23/18 03/23/18 05:30 11:24 17:01 WBC RBC Hgb Hct MCV MCH MCHC RDW Plt Count MPV Neut % (Auto) Lymph % (Auto) White % (Auto) Eos % (Auto) Baso % (Auto) Absolute Neuts (auto) Absolute Lymphs (auto) Absolute Monos (auto) Absolute Eos (auto) Absolute Basos (auto) Absolute Nucleated RBC Nucleated RBC % Sodium Potassium Chloride Carbon Dioxide Anion Gap BUN Creatinine Est GFR ( Amer) Est GFR (Non-Af Amer) BUN/Creatinine Ratio Glucose POC Glucose (mg/dL) 383 H 176 H Hemoglobin A1c 5.8 H Calcium C-Reactive Protein 03/23/18 03/24/18 03/24/18 20:28 03:24 05:20 WBC 10.3 RBC 4.50 Hgb 14.6 Hct 43 MCV 96 H MCH 32 H MCHC 34 RDW 15 Plt Count 137 L MPV 8.0 Neut % (Auto) 78.7 Lymph % (Auto) 13.9 White % (Auto) 7.2 Eos % (Auto) 0 Baso % (Auto) 0.2 Absolute Neuts (auto) 8.2 H Absolute Lymphs (auto) 1.4 Absolute Monos (auto) 0.7 Absolute Eos (auto) 0 Absolute Basos (auto) 0 Absolute Nucleated RBC 0 Nucleated RBC % 0 Sodium Potassium Chloride Carbon Dioxide Anion Gap BUN Creatinine Est GFR ( Amer) Est GFR (Non-Af Amer) BUN/Creatinine Ratio Glucose POC Glucose (mg/dL) 199 H 164 H Hemoglobin A1c Calcium C-Reactive Protein 03/24/18 05:20 WBC RBC Hgb Hct MCV MCH MCHC RDW Plt Count MPV Neut % (Auto) Lymph % (Auto) White % (Auto) Eos % (Auto) Baso % (Auto) Absolute Neuts (auto) Absolute Lymphs (auto) Absolute Monos (auto) Absolute Eos (auto) Absolute Basos (auto) Absolute Nucleated RBC Nucleated RBC % Sodium 133 L Potassium 3.4 L Chloride 100 L Carbon Dioxide 27 Anion Gap 6 BUN 25 H Creatinine 0.70 Est GFR ( Amer) 140.2 Est GFR (Non-Af Amer) 115.8 BUN/Creatinine Ratio 35.7 H Glucose 223 H POC Glucose (mg/dL) Hemoglobin A1c Calcium 8.6 C-Reactive Protein 7.77 Assessment - Problem List Assessment: Patient Problems Anaphylactic reaction (Acute) Cough (Acute) Diarrhea (Acute) Shellfish allergy (Acute) Aortic regurgitation (Chronic) Asthma (Chronic) Essential hypertension (Chronic) Hyperlipidemia (Chronic) PTSD (post-traumatic stress disorder) (Chronic) Peripheral autonomic neuropathy due to diabetes mellitus (Chronic) Primary hypothyroidism (Chronic) Thoracic aortic aneurysm (Chronic) Tobacco abuse (Chronic) Type 2 diabetes mellitus (Chronic) Plan: Anaphylactic reaction (Acute)Shellfish allergy (Acute) I will rapidly taper is prednisone Cough (Acute) This is marked with much sinus drainage. I will check a CXR Diarrhea (Acute) This stopped Asthma (Chronic) This may be exacerbated Type 2 diabetes mellitus (Chronic) His glucose will come down with the decrease in steroids. Social situation: He has housing insecurity. His current living space has health and safety issues and he doesn't want to return there. He has been homeless in the past and in this cold weather I think we need a plan for discharge. I will have the social services manager see him today. I will have OT/PT assess his mobility.
[2018-03-24] MEDS: Mometasone/Formoter 200/5 MDI INH SCH ×2 (08:41→19:27)
[2018-03-24] MEDS: Metoprolol Tartrate TAB* 25 MG PO SCH ×2 (09:12→22:17)
[2018-03-24] MEDS: Lisinopril TAB* 5 MG PO SCH (09:12)
[2018-03-24] MEDS: hydrALAZINE TAB* 25 MG PO SCH ×4 (09:12→22:17)
[2018-03-24] MEDS: Famotidine TAB* 20 MG PO SCH (09:12)
[2018-03-24] MEDS: metFORMIN* 1,000 MG TAB PO SCH ×2 (09:12→16:56)
[2018-03-24] MEDS: Insulin LISPRO* 1 UNITS UNIT SUBCUT SCH ×4 (09:13→22:40)
[2018-03-24] MEDS: Collagenase 250 MG/GM OINT* 30 GM TOPICAL SCH (09:13)
[2018-03-24] MEDS: predniSONE TAB* 10 MG PO SCH ×2 (09:18→22:17)
[2018-03-24] MEDS: Potassium Chlor TAB* 20 MEQ TAB.ER PO SCH (09:18)
--- NOTE | 2018-03-24 09:24 | PTEDU ---
Patient Name: PEDRITO JUAREZ TYLER REJIPEDRITO MOBLEY selected video: Abdominal Aortic Aneurysm - Open Repair to view on 03/24/2018 at 9:23:52 AM from [id number]
--- NOTE | 2018-03-24 09:30 | PTEDU ---
Patient Name: PEDRITO JUAREZ TYLER PEDRITO MENDOZA selected video: Abdominal Aortic Aneurysm - Open Repair to view on 03/24/2018 at 9:30:03 AM from [id number]
[2018-03-24] MEDS: glipiZIDE TAB* 5 MG PO SCH (16:57)
[2018-03-24] MEDS: amLODIPine TAB* 5 MG PO SCH (22:19)
[2018-03-24] MEDS ORDERED: Zolpidem TAB* 5 MG PO PRN (23:15)
[2018-03-24] MEDS: CMCS Escitalopram (NF) 10 MG TAB PO SCH (23:32)
[2018-03-25 05:41] LABS: Hematocrit 44 % (42-52); Hemoglobin 14.6 g/dl (14.0-18.0); Mean Corpuscular HGB Conc 33 g/dl (31-36); Mean Corpuscular Hemoglobin 32 pg (27-31); Mean Corpuscular Volume 97 fL (80-94); Platelet Count 150 10^3/ul (150-450); Red Blood Count 4.53 10^6/ul (4.00-5.40); Red Cell Distribution Width 14 % (10.5-15); White Blood Count 9.3 10^3/ul (3.5-10.8)
[2018-03-25 05:58] LABS: EGFR Non-African American 133.2 (>60)
[2018-03-25] MEDS: Levothyroxine TAB* 125 MCG TAB PO SCH (06:13)
[2018-03-25 06:18] LABS: ABS Basophils 0 10^3/ul (0-0.2); ABS Eosinophils 0 10^3/ul (0-0.6); ABS Lymphocytes 1.6 10^3/ul (1.0-4.8); ABS Monocytes 0.9 10^3/ul (0-0.8); ABS Neutrophils 6.8 10^3/ul (1.5-7.7); ABS Nucleated RBC 0 10^3/ul; Eosinophil % 0.2 %; Lymphocyte % 16.7 %; Nucleated Red Blood Cells % 0
[2018-03-25] MEDS: metFORMIN* 1,000 MG TAB PO SCH (07:38)
[2018-03-25] MEDS: glipiZIDE TAB* 5 MG PO SCH (07:38)
[2018-03-25] MEDS: Mometasone/Formoter 200/5 MDI INH SCH (07:40)
[2018-03-25 08:12] VITALS: BP 155/61
--- NOTE | 2018-03-25 08:31 | PN ---
Subjective - Subjective Reason for Note: Discharge Note History: See discharge summary (dictated) He is ready for discharge. His breathing is fine. OT/PT state he is independent. Active Problems: Active Problems Anaphylactic reaction (Acute) T78.2XXA Cough (Acute) R05 Diarrhea (Acute) R19.7 Shellfish allergy (Acute) Z91.013 Aortic regurgitation (Chronic) I35.1 Asthma (Chronic) J45.909 Essential hypertension (Chronic) I10 Hyperlipidemia (Chronic) E78.5 PTSD (post-traumatic stress disorder) (Chronic) F43.10 Peripheral autonomic neuropathy due to diabetes mellitus (Chronic) E11.43 Primary hypothyroidism (Chronic) E03.9 Thoracic aortic aneurysm (Chronic) I71.2 Tobacco abuse (Chronic) Z72.0 Type 2 diabetes mellitus (Chronic) Current Medications: Current Medications Albuterol/Ipratropium (Duoneb (Albuterol 2.5 Mg/Ipratropium 0.5 Mg)) 1 neb INH [id number] AWAKE PRN PRN Reason: sob/wheexing Amlodipine Besylate (Norvasc Tab*) 10 mg PO Q24H [facility] Last Admin: 03/24/18 22:19 Dose: 10 mg Collagenase (Santyl 250 Mg/Gm Oint*) 1 applic TOPICAL DAILY [facility] Last Admin: 03/24/18 09:13 Dose: 1 applic Dextrose (D50w Syringe 50 Ml*) 12.5 gm IV PUSH .FOR FS < 60 - SS PRN PRN Reason: FS < 60 Last Admin: 03/24/18 22:29 Dose: 12.5 gm Escitalopram Oxalate (Lexapro (Nf)) 20 mg PO BEDTIME [facility] Last Admin: 03/24/18 23:32 Dose: 20 mg Famotidine (Pepcid Tab*) 20 mg PO DAILY [facility] Last Admin: 03/24/18 09:12 Dose: 20 mg Glipizide (Glucotrol Tab*) 5 mg PO 0800,1700 [facility] Last Admin: 03/25/18 07:38 Dose: 5 mg Hydralazine HCl (Apresoline Tab*) 50 mg PO QID [facility] Last Admin: 03/24/18 22:17 Dose: 50 mg Insulin Human Lispro (Humalog*) 0 units SUBCUT ACHS [facility]; Protocol Last Admin: 03/24/18 22:40 Dose: Not Given Levothyroxine Sodium (Synthroid Tab*) 125 mcg PO DAILY@0600 [facility] Last Admin: 03/25/18 06:13 Dose: 125 mcg Lisinopril (Prinivil Tab*) 5 mg PO DAILY [facility] Last Admin: 03/24/18 09:12 Dose: 5 mg Loperamide HCl (Imodium Cap*) 4 mg PO .SEE DIRECTIONS PRN PRN Reason: DIARRHEA Last Admin: 03/23/18 08:38 Dose: 4 mg Metformin HCl (Glucophage*) 1,000 mg PO 0800,1700 [facility] Last Admin: 03/25/18 07:38 Dose: 1,000 mg Metoprolol Tartrate (Lopressor Tab*) 25 mg PO BID [facility] Last Admin: 03/24/18 22:17 Dose: 25 mg Mometasone Furoate/Formoterol Fumar (Dulera 200/5 Mdi*) 2 puff INH BID [facility] Last Admin: 03/25/18 07:40 Dose: 2 puff Potassium Chloride (Klor Con Er Tab*) 20 meq PO DAILY [facility] Last Admin: 03/24/18 09:18 Dose: 20 meq Prednisone (Deltasone Tab*) 10 mg PO BID [facility] Last Admin: 03/24/18 22:17 Dose: 10 mg Zolpidem Tartrate (Ambien Tab*) 5 mg PO BEDTIME PRN PRN Reason: INSOMNIA Last Admin: 03/24/18 23:33 Dose: 5 mg Home Medications: Home Medications Medication Instructions Recorded Confirmed Type Folic Acid TAB* [Folvite TAB*] 1 mg PO DAILY 08/26/17 01/11/18 History Gabapentin CAP(*) [Neurontin 300 300 mg PO TID 08/26/17 01/11/18 History CAP(*)] Levothyroxine TAB* [Synthroid TAB*] 125 mcg PO DAILY 08/26/17 01/11/18 History Metoprolol Succinate XL TAB* 50 mg PO DAILY 08/26/17 01/11/18 History [Toprol XL TAB*] Simvastatin [Zocor] 20 mg PO DAILY 08/26/17 01/11/18 History Sitagliptin Phosphate [Januvia] 100 mg PO DAILY 08/26/17 01/11/18 History amLODIPine TAB* [Norvasc 5 mg TAB*] 10 mg PO DAILY 08/26/17 01/11/18 History traZODone TAB* [Desyrel TAB*] 150 mg PO BEDTIME 08/26/17 01/18/18 History Albuterol 2.5MG/3ML (0.083%)* 2.5 mg INH Q6H PRN 12/10/17 01/11/18 History [Ventolin 2.5 MG/3 ML NEB.ASIM*] Albuterol inh POWDER (NF) [Proair 2 puff INH QID PRN 12/10/17 01/11/18 History Respiclick] Aspirin TAB* [Aspirin 325 MG TAB*] 325 mg PO DAILY 12/10/17 01/11/18 History Cetirizine* [ZyrTEC 10 MG TAB*] 10 mg PO DAILY 12/10/17 01/11/18 History EPINEPHrine [Epipen 2-Delon] 0.3 mg IM ONCE PRN 12/10/17 01/11/18 History Econazole 1% CREAM (NF) [Econazole 1 applic TOPICAL BID PRN 12/10/17 01/11/18 History 1 % CREAM (NF)] Escitalopram Oxalate [Lexapro 20 20 mg PO DAILY 12/10/17 01/11/18 History mg] Fluocinonide 0.05% CM (NF) [Lidex 1 applic TOPICAL TID PRN 12/10/17 01/11/18 History 0.05% CREAM (NF)] Ipratropium Br (Nf)0.03% Nasal 2 spray BOTH NARES .3-4XDAILY MAX 12/10/17 History [Ipratropium [place]] 4DAYS PRN Loperamide CAP* [Imodium CAP*] 2 mg PO Q6H PRN 12/10/17 01/11/18 History Meloxicam 15 mg PO DAILY 12/10/17 01/18/18 History Nitroglycerin [Nitrostat] 0.3 mg SL .Q5MIN UP TO 3X PRN 12/10/17 01/11/18 History [place]-3 Acid Ethyl Esters [Lovaza] 2 cap PO BID 12/10/17 01/11/18 History Omeprazole CAP* [Prilosec CAP* 20 20 mg PO BID 12/10/17 01/18/18 History MG] Quinapril HCl 20 mg PO DAILY 12/10/17 01/11/18 History Tizanidine HCl [Zanaflex] 4 mg PO BID 12/10/17 01/11/18 History Zolpidem TAB* [Ambien*] 10 mg PO BEDTIME 12/10/17 01/11/18 History metFORMIN* [Glucophage 1000 MG TAB 1,000 mg PO BID 12/10/17 01/11/18 History *] Calcium Carbonate/Vitamin D3 1 tab PO DAILY 01/11/18 01/11/18 History [Calcium 500-Vit D3 200 Caplet] Sildenafil Citrate [Viagra] 100 mg PO DAILY PRN 01/11/18 01/11/18 History Quinapril HCl 20 mg PO DAILY #1 tablet 03/25/18 Rx Allergies: Allergies Allergy/AdvReac Type Severity Reaction Status Date / Time atorvastatin [From Lipitor] Allergy Anaphylatic Verified 12/10/17 16:03 Shock fenofibrate [From Tricor] Allergy Unknown Verified 03/20/18 15:30 Reaction Details iodine Allergy Anaphylatic Verified 12/10/17 16:03 Shock shellfish derived Allergy Anaphylatic Verified 03/21/18 11:19 Shock Sulfa (Sulfonamide Allergy Anaphylatic Verified 12/10/17 16:03 Antibiotics) Shock Objective - Vital Signs Vital Signs: Vital Signs 03/24/18 03/24/18 03/24/18 11:27 14:54 19:17 Temperature 98.1 F 97.8 F 97.9 F Pulse Rate 72 81 82 Respiratory 16 18 18 Rate Blood Pressure 140/81 136/72 133/58 (mmHg) O2 Sat by Pulse 97 97 97 Oximetry 03/24/18 03/24/18 03/24/18 19:29 22:40 22:46 Temperature 97.3 F Pulse Rate 82 87 Respiratory 18 18 16 Rate Blood Pressure 147/81 (mmHg) O2 Sat by Pulse 97 95 Oximetry 03/25/18 03/25/18 03:22 07:17 Temperature 98.4 F 97.5 F Pulse Rate 81 72 Respiratory 24 16 Rate Blood Pressure 141/61 155/61 (mmHg) O2 Sat by Pulse 96 Oximetry - Intake and Output Intake and Output: Intake & Output 03/22/18 03/23/18 03/24/18 03/25/18 11:59 11:59 11:59 11:59 Intake Total 2517.4 2761 204 8953 Output Total 2245 1775 400 Balance 272.4 -245 910 840 Weight 211 lb 3.245 oz 209 lb 0.6 oz Intake: IV Fluids 1475 368 NS 1475 368 Medicated IV 947.4 242 Precedex 290.4 67 propofol 657 175 Oral 0 989 198 9032 Tube Feeding Flush Amount 95 Output: Urine 400 Asher 2245 1775 Other: Estimated Void Medium Date of Last Bowel 03/22/18 03/22/18 Movement # Bowel Movements 1 1 0 0 Estimated Stool Amount Large Medium Large # Voids 1 0 ADLs: Meal Record Start: 03/20/18 08: 39 Freq: 09,13,18 Status: Inactive Protocol: Created 03/20/18 08:39 System (Rec: 03/20/18 08:39 System ICU-C12) ADLs: Meal Record Start: 03/23/18 12: 56 Freq: DAILY@0900,1400,1800 Status: Active Protocol: Created 03/23/18 12:56 [id number] (Rec: 03/23/18 12:56 [id number] MED-M09) Document 03/23/18 13:50 NVP6353 (Rec: 03/23/18 13:52 [id number] MED-C11) Document 03/23/18 18:00 [id number] (Rec: 03/23/18 18:29 [id number] MED-C05) Document 03/24/18 09:00 IOK2723 (Rec: 03/24/18 09:15 [id number] MED-C05) Document 03/24/18 13:56 RLE2703 (Rec: 03/24/18 13:57 BYP0165 MED-C05) Document 03/24/18 18:00 UAU5422 (Rec: 03/24/18 20:12 RCM0938 MED-C11) Intake and Output Start: 03/20/18 06: 35 Freq: Status: Active Protocol: Created 03/20/18 06:35 System (Rec: 03/20/18 06:35 System EDRM-C12) Intake and Output Start: 03/20/18 08: 39 Freq: 06,14,2200 Status: Inactive Protocol: Created 03/20/18 08:39 System (Rec: 03/20/18 08:39 System ICU-C12) Document 03/20/18 09:58 IGI6340 (Rec: 03/20/18 09:59 FIG5562 ICU-M23) Document 03/20/18 11:00 FRX0656 (Rec: 03/20/18 11:03 GDY4636 ICU-M23) Document 03/20/18 12:00 UOS2612 (Rec: 03/20/18 12:58 TQF9118 ICU-M23) Document 03/20/18 13:00 PUG8337 (Rec: 03/20/18 13:05 ZKO3725 ICU-M23) Document 03/20/18 15:00 XOL4047 (Rec: 03/20/18 15:16 LQR8867 ICU-M23) Document 03/20/18 16:00 SWN0969 (Rec: 03/20/18 16:20 FTW0865 ICU-M23) Document 03/20/18 17:00 SIA8843 (Rec: 03/20/18 17:15 NAE5004 ICU-M23) Document 03/20/18 18:00 PMA8840 (Rec: 03/20/18 18:05 CMT1720 ICU-M23) Document 03/20/18 19:00 NJR6559 (Rec: 03/20/18 19:08 WYL2447 ICU-M23) Document 03/20/18 21:00 BHE9685 (Rec: 03/20/18 21:15 CIY0600 ICU-M23) Document 03/20/18 22:24 NKJ3183 (Rec: 03/20/18 22:24 WFW0498 ICU-M23) Document 03/21/18 00:41 ERJ4939 (Rec: 03/21/18 00:41 DML7520 ICU-M23) Document 03/21/18 02:37 SDR6016 (Rec: 03/21/18 02:37 KWO6734 ICU-M22) Document 03/21/18 04:24 PFI6294 (Rec: 03/21/18 04:24 XYP5118 ICU-M23) Document 03/21/18 05:35 WCD2263 (Rec: 03/21/18 05:35 GNL5328 ICU-M23) Document 03/21/18 06:15 GOM8332 (Rec: 03/21/18 06:15 PYY0149 ICU-M23) Document 03/21/18 06:54 EOZ4319 (Rec: 03/21/18 06:54 FQW1143 ICU-M23) Document 03/21/18 08:10 YMO4761 (Rec: 03/21/18 08:10 OHF4487 ICU-M23) Document 03/21/18 09:12 KCP3464 (Rec: 03/21/18 09:12 CRD0461 ICU-C20) Document 03/21/18 10:01 QVD1718 (Rec: 03/21/18 10:01 FUG9472 ICU-C20) Document 03/21/18 11:33 YFU7786 (Rec: 03/21/18 11:33 AIE9312 ICU-C20) Document 03/21/18 13:45 BST0668 (Rec: 03/21/18 13:45 UTY8010 ICU-C20) Document 03/21/18 15:33 JCA0895 (Rec: 03/21/18 15:33 LIN2706 ICU-C20) Document 03/21/18 16:00 IHD7385 (Rec: 03/21/18 16:03 TQC9753 ICU-C20) Document 03/21/18 17:00 HGE0993 (Rec: 03/21/18 17:02 QNR5392 ICU-C12) Document 03/21/18 19:00 BLK8072 (Rec: 03/21/18 19:14 CKQ7699 ICU-M22) Document 03/21/18 21:00 ENQ1078 (Rec: 03/21/18 21:37 IZK0843 ICU-M22) Document 03/21/18 22:00 ZUN6876 (Rec: 03/21/18 22:10 QKP0873 ICU-M23) Document 03/21/18 23:00 CYA5507 (Rec: 03/21/18 23:09 UMB3697 ICU-M22) Document 03/22/18 00:00 ZAO7145 (Rec: 03/22/18 00:38 NGR2461 ICU-C12) Document 03/22/18 01:00 RWF3075 (Rec: 03/22/18 01:05 RUB0572 ICU-C12) Document 03/22/18 02:00 TAB3764 (Rec: 03/22/18 02:05 RHN2852 ICU-C12) Document 03/22/18 03:00 DXZ0729 (Rec: 03/22/18 03:07 WMY3669 ICU-C12) Document 03/22/18 04:00 NAI1583 (Rec: 03/22/18 04:16 HBQ9934 ICU-C12) Document 03/22/18 05:00 PZA6637 (Rec: 03/22/18 05:30 ANN6774 ICU-C12) Document 03/22/18 06:00 JZG7217 (Rec: 03/22/18 06:28 SFH3230 ICU-C12) Document 03/22/18 07:00 MRJ4946 (Rec: 03/22/18 07:48 HMO1523 ICU-C15) Document 03/22/18 08:04 IWW1841 (Rec: 03/22/18 08:04 GUN0805 ICU-M23) Document 03/22/18 09:05 FKM0666 (Rec: 03/22/18 09:05 QIM9536 ICU-M23) Document 03/22/18 10:35 QDP9036 (Rec: 03/22/18 10:35 ENA6413 ICU-C15) Document 03/22/18 11:00 LCD7856 (Rec: 03/22/18 11:06 ZKR7680 ICU-C15) Document 03/22/18 13:30 KAR2926 (Rec: 03/22/18 13:30 WNG5954 ICU-C15) Document 03/22/18 16:36 MJJ1172 (Rec: 03/22/18 16:36 REA3163 ICU-C15) Document 03/22/18 18:00 DJY0356 (Rec: 03/22/18 18:19 BYI6376 ICU-C15) Document 03/22/18 19:00 ZRQ1971 (Rec: 03/22/18 19:05 YFI5446 ICU-C12) Document 03/22/18 20:00 LOF3452 (Rec: 03/22/18 21:35 HYO5000 ICU-C12) Document 03/22/18 21:00 SDC6466 (Rec: 03/22/18 21:36 GVB1040 ICU-C12) Document 03/22/18 22:00 XRS0153 (Rec: 03/22/18 22:18 DIJ4739 ICU-C12) Document 03/22/18 23:00 LYR8090 (Rec: 03/22/18 23:24 WGR6609 ICU-C12) Document 03/23/18 00:00 HCN2419 (Rec: 03/23/18 00:25 NXK3037 ICU-C12) Document 03/23/18 01:00 ATF4658 (Rec: 03/23/18 01:03 SCV9457 ICU-C12) Document 03/23/18 01:51 BOD3300 (Rec: 03/23/18 01:51 PSE6204 ICU-C12) Document 03/23/18 03:00 GLV5153 (Rec: 03/23/18 04:22 XGH9802 ICU-C12) Document 03/23/18 04:00 AAR6932 (Rec: 03/23/18 04:34 BHF3393 ICU-C12) Document 03/23/18 06:00 PKF9638 (Rec: 03/23/18 06:25 QRW3133 ICU-C12) Document 03/23/18 08:51 CCL7290 (Rec: 03/23/18 08:51 EJJ2969 ICU-C15) Document 03/23/18 09:00 AGL7109 (Rec: 03/23/18 10:08 OBC0641 ICU-C15) Document 03/23/18 10:00 AGD6185 (Rec: 03/23/18 10:08 IWN4950 ICU-C15) Intake and Output Start: 03/23/18 12: 56 Freq: DAILY@0600,1400,2200 Status: Active Protocol: Created 03/23/18 12:56 VSZ1253 (Rec: 03/23/18 12:56 BNP1570 MED-M09) Document 03/23/18 13:50 DXL6692 (Rec: 03/23/18 13:52 ZIE7093 MED-C11) Document 03/23/18 20:47 YJA9546 (Rec: 03/23/18 20:47 XRW0597 MED-C11) Document 03/24/18 06:00 LRX3078 (Rec: 03/24/18 06:11 EOD5499 MED-C11) Document 03/24/18 13:57 LCY6747 (Rec: 03/24/18 13:58 PET7403 MED-C05) Document 03/24/18 22:00 BGN1723 (Rec: 03/24/18 22:24 XZJ7010 MED-C11) Document 03/25/18 05:52 WQO1493 (Rec: 03/25/18 05:53 [id number] [place] [address]) - Physical Exam General Physical Exam Comment: Lesion on left lower leg healing General: No Cyanosis, No Anemia, No Jaundice, No Clubbing Lungs and Chest: Yes: Chest Expansion Full, Chest Expansion Symetrica, Percussion Note Resonant, Vessicular Breath Sounds. No: Crackles, Wheezes Heart Rate and Rhythm: Regular JVP: Not Elevated Additional Cardiovascular: Yes: Normal Heart Sounds. No: Heart Murmur, Pedal Edema Abdominal Exam: Yes: Soft, Bowel Sounds Present. No: Distention, Abdominal Tenderness - Extremities Cranial Nerves II-XII Intact: Yes Limbs: Normal Power, Normal Tone - Neuro Orientation: A/O x3 Speech: Normal Results - Results Lab Results: Laboratory Results - last 24 hr 03/24/18 03/24/18 03/24/18 08:08 11:48 16:56 WBC RBC Hgb Hct MCV MCH MCHC RDW Plt Count MPV Neut % (Auto) Lymph % (Auto) [place] % (Auto) Eos % (Auto) Baso % (Auto) Absolute Neuts (auto) Absolute Lymphs (auto) Absolute Monos (auto) Absolute Eos (auto) Absolute Basos (auto) Absolute Nucleated RBC Nucleated RBC % Sodium Potassium Chloride Carbon Dioxide Anion Gap BUN Creatinine Est GFR ( Amer) Est GFR (Non-Af Amer) BUN/Creatinine Ratio Glucose POC Glucose (mg/dL) 212 H 132 H 174 H Calcium 03/24/18 03/24/18 03/25/18 22:23 23:37 05:14 WBC 9.3 RBC 4.53 Hgb 14.6 Hct 44 MCV 97 H MCH 32 H MCHC 33 RDW 14 Plt Count 150 MPV 8.0 Neut % (Auto) 73.3 Lymph % (Auto) 16.7 [place] % (Auto) 9.6 Eos % (Auto) 0.2 Baso % (Auto) 0.2 Absolute Neuts (auto) 6.8 Absolute Lymphs (auto) 1.6 Absolute Monos (auto) 0.9 H Absolute Eos (auto) 0 Absolute Basos (auto) 0 Absolute Nucleated RBC 0 Nucleated RBC % 0 Sodium Potassium Chloride Carbon Dioxide Anion Gap BUN Creatinine Est GFR ( Amer) Est GFR (Non-Af Amer) BUN/Creatinine Ratio Glucose POC Glucose (mg/dL) 50 L 108 H Calcium 03/25/18 03/25/18 05:14 07:37 WBC RBC Hgb Hct MCV MCH MCHC RDW Plt Count MPV Neut % (Auto) Lymph % (Auto) [place] % (Auto) Eos % (Auto) Baso % (Auto) Absolute Neuts (auto) Absolute Lymphs (auto) Absolute Monos (auto) Absolute Eos (auto) Absolute Basos (auto) Absolute Nucleated RBC Nucleated RBC % Sodium 132 L Potassium 3.8 Chloride 101 Carbon Dioxide 26 Anion Gap 5 BUN 23 Creatinine 0.62 L Est GFR ( Amer) 161.2 Est GFR (Non-Af Amer) 133.2 BUN/Creatinine Ratio 37.1 H Glucose 219 H POC Glucose (mg/dL) 193 H Calcium 8.9 Assessment - Problem List Assessment: Patient Problems Anaphylactic reaction (Acute) Cough (Acute) Diarrhea (Acute) Shellfish allergy (Acute) Aortic regurgitation (Chronic) Asthma (Chronic) Essential hypertension (Chronic) Hyperlipidemia (Chronic) PTSD (post-traumatic stress disorder) (Chronic) Peripheral autonomic neuropathy due to diabetes mellitus (Chronic) Primary hypothyroidism (Chronic) Thoracic aortic aneurysm (Chronic) Tobacco abuse (Chronic) Type 2 diabetes mellitus (Chronic) Plan: He is recovered. I have stopped his prednisone. He will stop glipizide (had a hypoglycemic episode yesterday). He will follow up with me as an out patient early next week. Coordination of care at that time for cardiac surgery.
[2018-03-25] MEDS: Insulin LISPRO* 1 UNITS UNIT SUBCUT SCH (08:58)
[2018-03-25] MEDS: predniSONE TAB* 10 MG PO SCH (08:59)
[2018-03-25] MEDS: Potassium Chlor TAB* 20 MEQ TAB.ER PO SCH (08:59)
[2018-03-25] MEDS: hydrALAZINE TAB* 25 MG PO SCH (09:00)
[2018-03-25] MEDS: Metoprolol Tartrate TAB* 25 MG PO SCH (09:00)
[2018-03-25] MEDS: Famotidine TAB* 20 MG PO SCH (09:01)
[2018-03-25] MEDS: Lisinopril TAB* 5 MG PO SCH (09:02)
[2018-03-25] MEDS: Collagenase 250 MG/GM OINT* 30 GM TOPICAL SCH (09:03)
--- NOTE | 2018-03-25 11:58 | DS ---
CC: Dr. Randle DISCHARGE SUMMARY: DATE OF ADMISSION: 03/20/18 DATE OF DISCHARGE: 03/25/18 DISCHARGE DIAGNOSES: 1. Acute anaphylactic reaction with angioedema and acute respiratory failure, requiring mechanical ventilation. 2. Chest pain. 3. Shellfish allergy. COMORBIDITIES: 1. Type 2 diabetes mellitus, usually managed with oral medication. 2. Ascending aortic aneurysm and aortic regurgitation. 3. Bullous lesion left lower leg. 4. Housing and food and security. SECONDARY DIAGNOSES: 1. Asthma. 2. Posttraumatic stress disorder. 3. Peripheral neuropathy due to type 2 diabetes. 4. Primary hypothyroidism. 5. Tobacco abuse. 6. Essential hypertension. 7. Dyslipidemia. HISTORY: Bisi Mclean is a 58-year-old -[place] male. His presentation is documented in Dr. Luann Schroeder's admitting history and physical. I note that I assumed care of the patient on 03/23/18. Until then, he was in the ICU under the care of Dr. Morgan Segovia who is the emergency management program specialist. In short, he presented to the emergency room at [facility] with chest pain. He is concerned as he has a known ascending thoracic aortic aneurysm and aortic valve disease. In the emergency room there , he was given a can of what he was told was tuna to eat. He suggested to the person handing him this that this looked to him like it was lobster or shellfish , but he was assured this was tuna. The next thing he remembers was somebody telling him that he had the largest soft palate swelling that he had ever seen and was unconscious until he was extubated at the [facility]. Apparently, in the emergency room at [facility], due to his history of anaphylaxis to shellfish, he was given Pepcid and steroids, Benadryl, and transferred to the [facility]. At the emergency room here, he was stridorous and he was intubated. Apparently, this was a problematic airway. PHYSICAL EXAMINATION AT PRESENTATION: He was intubated, sedated, did not respond to any stimuli. Temperature 98.4, heart rate 100, respirations 20, oxygen saturation 98% on 50% FiO2, blood pressure 154/85. No other focal signs. INITIAL DIAGNOSTICS: White count 7.9, hemoglobin 16.3, platelets 180,000. APTT 32.9. Chemistry was normal. Glucose 124. Troponin I 0.03. Chest x-ray: Cardiomegaly. EKG: Normal sinus rhythm. Q waves in III and aVF. No ST-T wave changes. INITIAL IMPRESSION: Acute anaphylaxis, requiring intubation. His initial management was in the intensive care unit. Dr. Morgan Segovia provides a consultation note on 03/20/18, which is part of the electronic medical record. Noted that he needed to be intubated for angioedema and airway compromised, given steroids and risk stratification for thoracic aortic aneurysm. Consultation from Dr. Sen Delgadillo on 03/20/18 for Cardiology, this is part of the electronic medical record. He has a stable aortic root aneurysm without rupture. He has been referred to a cardiovascular surgeon for elective repair as an outpatient. Good blood pressure control needs to be reintroduced and he should follow up as an outpatient with a cardiovascular surgeon. No acute cardiac problems on this admission. He responded to respiratory support, steroids, and was extubated. I assumed care on 03/23/18, and transferred him to a regular medical bed from the ICU. The rest of the hospital stay was uneventful and required management of his diabetes, tapering of his steroids at first IV and then oral, counseling on tobacco use, and also psychosocial support. On the penultimate day in the hospital, his daughter visited from [place]. She is a medical apparatus model maker and was very concerned about her father, particularly his psychosocial issues. On the day of discharge, his breathing is normal. He has no swelling of his mucous membranes. He was seen by OT and PT on the penultimate day of the hospitalization and is back to his baseline. REVIEW OF SYSTEMS: Cardiovascular System: No chest pain, palpitations, ankle swelling. Respiratory System: He has a postnasal drip, which is causing him to cough. He has no exacerbation of asthma at the present time. Gastrointestinal System: Appetite is good. Bowels working. System: He is urinating after he had a Asher catheter. PHYSICAL EXAMINATION: Vital Signs: Temperature 98.4, pulse 81, respirations 24 , oxygen saturation 96%, blood pressure 141/61. He is warm and well perfused, alert and oriented. Normal speech. He has no cyanosis, anemia, jaundice, clubbing, or adenopathy. Cardiovascular system: His pulse was regular, normal character and volume. Venous pressure was not elevated. Heart sounds are normal. No added sounds or murmurs. No pedal edema. No carotid bruits. Respiratory system: Chest expansion full and symmetrical. Percussion note resonant. Breath sounds vesicular. No crackles or wheezes. Abdomen: Soft, nontender. No masses or organomegaly. Nervous system: He has conjugate eye movements. Cranial nerves were intact. Arms and legs showed normal power and tone. Skin: Left lower leg has a healing ulcer, this started as bullous and I have been following this as an outpatient. I have taken another clinical photograph for my records. INVESTIGATIONS: Labs on 03/25/18: Chemistry was normal aside from a sodium of 132 and a glucose of 219. CBC was within normal limits. Chest x-ray on penultimate day in the hospital, he has a right pleural effusion which is small. ASSESSMENT AND PLAN: 1. Acute anaphylaxis plus angioedema due to shellfish exposure. He has recovered from this. I have stopped his corticosteroids. He will follow up with me as an outpatient early next week. 2. Cough. This is likely due to his postnasal drip following his intubation and the dry air of the hospital. He does not require any antibiotics. 3. Ascending thoracic aortic aneurysm and aortic valve regurgitation. He is being followed by Dr. Randle for this and we will ensure that he follows the plan for cardiac surgery. 4. Type 2 diabetes mellitus. I have stopped his glipizide as he has been having hypoglycemia at home. He also had 1 episode last evening when it went down to 50 mg/dL, otherwise he will be back on his usual medication. 5. Tobacco abuse. He is not going to start smoking once he is discharged from the hospital. He has a prescription for Chantix. 6. Primary hypothyroidism, continue current medication. 7. Posttraumatic stress disorder. He is going to need some psychological support as this is exacerbated by his acute anaphylaxis. 8. Hyperlipidemia, but we will continue to treat this with a statin. 9. Essential hypertension, we need to keep his blood pressure down because of his aortic aneurysm. 10. Asthma, he will treat this as usual, it is not exacerbated. 11. Housing and food and security. He is living in a precarious existence, at present he is in the queue for section 8 housing. He is prepared to go back to his usual rooming house until a better opportunity is available. I note that he has problems with executive functioning due to longstanding psychological issues. He is anchored to the idea of finishing his degree at [employer] and does not show any perspective in this in terms of his life. His daughter is fully aware of this. He will require further social support in order to get to a more stable situation in which he can cope and which is sustainable. 12. Lesion on left lower leg, this is healing up. I am not sure what caused it in the first place. It looked like a burn, but he did not have any history of heat exposure to his lower leg. He has no other lesions. DISCHARGE MEDICATIONS: 1. Quinapril 20 mg daily. 2. Amlodipine 10 mg daily. 3. Metoprolol XL 50 mg daily. 4. Folic acid 1 mg daily. 5. Trazodone 150 mg q.h.s. 6. Gabapentin 300 mg t.i.d. 7. Sitagliptin 100 mg daily. 8. Simvastatin 20 mg q.h.s. 9. Levothyroxine 125 mcg q.a.m. 10. Lovaza 2 capsules daily. 11. Epinephrine 0.3 mg IM as needed for anaphylaxis. 12. Metformin 1000 mg twice daily. 13. Omeprazole 20 mg daily. 14. Tizanidine 4 mg twice daily. 15. Nitroglycerin 0.3 mg sublingually as needed. 16. Meloxicam 15 mg as needed daily. 17. Loperamide 2 mg as needed for diarrhea. 18. Zolpidem 10 mg as needed at bedtime. 19. Escitalopram 20 mg daily. 20. Ipratropium bromide nasal spray 2 sprays each nares each day. 21. Albuterol nebulizer 2.5 mg every 6 hours as needed. 22. Cetirizine 10 mg as needed. 23. Aspirin 325 mg a day. 24. Calcium carbonate/vitamin D 500/200 one a day. 25. Sildenafil 100 mg as needed. [id number]/[facility] #: [id number] MTDD
== END 2018-03-25 12:40 | disposition home or self-care (01) | DRG 915 ==
LOC: ED 06:28 → ICU 08:17 → MED 03-23 12:52
PROVIDERS: ADMIT Internal Medicine; ATTEND Internal Medicine Critical Care Medicine
PROC: 0BH17EZ Insertion of Endotracheal Airway into Trachea, Via Natural or Artificial Opening (ICD-10-PCS; principal; 2018-03-20)
PROC: 5A1945Z Respiratory Ventilation, 24-96 Consecutive Hours (ICD-10-PCS; 2018-03-20)
DX: T78.02XA Anaphylactic reaction due to shellfish (crustaceans), initial encounter (principal); J96.00 Acute respiratory failure, unspecified whether with hypoxia or hypercapnia; J90 Pleural effusion, not elsewhere classified; E11.42 Type 2 diabetes mellitus with diabetic polyneuropathy; I71.2 Thoracic aortic aneurysm, without rupture; I11.9 Hypertensive heart disease without heart failure; T78.3XXA Angioneurotic edema, initial encounter; R07.9 Chest pain, unspecified; Z91.013 Allergy to seafood; I25.10 Atherosclerotic heart disease of native coronary artery without angina pectoris; J45.909 Unspecified asthma, uncomplicated; F43.10 Post-traumatic stress disorder, unspecified; R05 Cough; E03.9 Hypothyroidism, unspecified; E78.5 Hyperlipidemia, unspecified; F17.210 Nicotine dependence, cigarettes, uncomplicated; L98.9 Disorder of the skin and subcutaneous tissue, unspecified; X58.XXXA Exposure to other specified factors, initial encounter; Y92.238 Other place in hospital as the place of occurrence of the external cause; R19.7 Diarrhea, unspecified; I35.1 Nonrheumatic aortic (valve) insufficiency; E66.9 Obesity, unspecified; Z68.33 Body mass index [BMI] 33.0-33.9, adult; Z88.2 Allergy status to sulfonamides; Z88.8 Allergy status to other drugs, medicaments and biological substances; Z82.49 Family history of ischemic heart disease and other diseases of the circulatory system; Z83.3 Family history of diabetes mellitus; Z80.1 Family history of malignant neoplasm of trachea, bronchus and lung; Z80.49 Family history of malignant neoplasm of other genital organs; Z79.84 Long term (current) use of oral hypoglycemic drugs; Z79.82 Long term (current) use of aspirin; Z79.899 Other long term (current) drug therapy
CPT/HCPCS: 36415; 71045; 71046; 80048; 80053; 83036; 83735; 83880; 84484; 85025; 85027; 85730; 86140; 87641; 93005; 93306; 94003; 94640; 99285; A9270-GY; G8978-GP-CI; G8979-GP-CI; G8980-GP-CI; G8987-GO-CI; G8988-GO-CI; G8989-GO-CI; J1200; J2250; J2704; J2920; J3010; J7512

== ENCOUNTER 2024-05-16 16:29 | Observation (INO) ==
[2024-05-16 17:17] LABS: Hematocrit 47.4 % (38-53); Hemoglobin 16.2 g/dL (13.2-16.3); Mean Corpuscular Hgb Conc 34.1 g/dL (31-36); Mean Corpuscular Volume 90.9 fL (80-97); Mean Platelet Volume 7.1 fL (7.5-11.2); Platelet Count 233 10^3/uL (150-450); Red Blood Count 5.22 10^6/uL (4.06-5.63); Red Cell Distribution Width 14.5 % (12-17); White Blood Count 6.4 10^3/uL (3.6-10.2)
[2024-05-16 17:25] LABS: INR 0.91 (0.85-1.14)
[2024-05-16 17:42] LABS: ABS Eosinophils 0.1 10^3/uL (0.0-0.5); ABS Monocytes 0.5 10^3/uL (0.0-1.1); ABS Neutrophils 3.8 10^3/uL (1.5-7.6); ABS Nucleated RBC 0.01 10^3/ul; Eosinophil % 1.3 %; Lymphocyte % 31.7 %; Nucleated Red Blood Cells % 0.2 %/100WBC (0.0-0.8); RBC Morphology Normal (Normal)
[2024-05-16 17:43] LABS: Albumin 4.5 g/dL (3.5-5.7); Albumin/Globulin Ratio 1.6 (1-3); Calcium 9.5 mg/dL (8.6-10.3); Creatinine, Serum 1.07 mg/dL (0.67-1.17); Globulin 2.8 g/dL (2-4); Potassium 4.4 mmol/L (3.5-5.0); Total Bilirubin 0.6 mg/dL (0.2-1.0); Total Protein 7.3 g/dL (6.4-8.9); eGFR CKD-EPI 77.5 (>60)
[2024-05-16 19:26] LABS: High Sensitivity Troponin 1 Hr 4 pg/mL (<20)
[2024-05-16] MEDS: Furosemide 40 mg/4 ml IV VIAL IV ONE (22:30)
[2024-05-16 23:36] LABS: Magnesium 2.1 mg/dL (1.9-2.7)
[2024-05-17] MEDS ORDERED: Dextrose 50% Syringe 50 ml 25 GM/50 ML SYRINGE IV PUSH PRN (00:09)
[2024-05-17 05:53] LABS: Hematocrit 45.2 % (38-53); Hemoglobin 15.3 g/dL (13.2-16.3); Mean Corpuscular Hemoglobin 30.7 pg (27-33); Mean Corpuscular Hgb Conc 33.9 g/dL (31-36); Mean Corpuscular Volume 90.4 fL (80-97); Platelet Count 226 10^3/uL (150-450); Red Blood Count 5.01 10^6/uL (4.06-5.63); Red Cell Distribution Width 13.9 % (12-17); White Blood Count 6.6 10^3/uL (3.6-10.2)
[2024-05-17] MEDS: Enoxaparin 40 MG/0.4 ML SYR SUBCUT SCH (05:55)
[2024-05-17 06:25] LABS: Calcium 8.9 mg/dL (8.6-10.3); Creatinine, Serum 0.95 mg/dL (0.67-1.17); Potassium 3.9 mmol/L (3.5-5.0); eGFR CKD-EPI 89.4 (>60)
[2024-05-17] MEDS: Mometasone/Formoter 200/5 MDI INH SCH (07:23)
[2024-05-17] MEDS: Magnesium Chloride EC 64 mgTAB PO SCH (08:31)
[2024-05-17] MEDS: ICOSAPENT ETHYL 0.5 GM PO SCH (08:31)
[2024-05-17] MEDS: Potassium Chlor 20 meq TAB.ER PO SCH (08:31)
[2024-05-17] MEDS: Empagliflozin 25 MG TAB PO SCH (08:31)
[2024-05-17 10:00] LABS: Ferritin 383.3 ng/mL (24-336)
[2024-05-17] MEDS ORDERED: Iohexol 350 (CONTRAST) 500 ML MDV IV ONE (10:46)
[2024-05-17] MEDS: Sulfur Hexaflouride MICROSPHR 25 MG VIAL IV PRN (11:50)
[2024-05-18 06:25] LABS: Hematocrit 44.8 % (38-53); Hemoglobin 15.3 g/dL (13.2-16.3); Mean Corpuscular Hemoglobin 31.3 pg (27-33); Mean Corpuscular Hgb Conc 34.1 g/dL (31-36); Mean Corpuscular Volume 91.7 fL (80-97); Platelet Count 221 10^3/uL (150-450); Red Blood Count 4.89 10^6/uL (4.06-5.63); Red Cell Distribution Width 14.3 % (12-17); White Blood Count 6.9 10^3/uL (3.6-10.2)
[2024-05-18 06:43] LABS: Calcium 9.1 mg/dL (8.6-10.3); Creatinine, Serum 0.87 mg/dL (0.67-1.17); Magnesium 2.1 mg/dL (1.9-2.7); Potassium 4.3 mmol/L (3.5-5.0); eGFR CKD-EPI 96.4 (>60)
[2024-05-18 06:58] LABS: TSH Ultra Thyroid Stim Horm 0.42 mcIU/mL (0.34-5.60)
[2024-05-18 09:41] LABS: ABS Eosinophils 0.1 10^3/uL (0.0-0.5); ABS Lymphocytes 2.4 10^3/uL (1.0-4.8); ABS Monocytes 0.7 10^3/uL (0.0-1.1); ABS Neutrophils 3.7 10^3/uL (1.5-7.6); ABS Nucleated RBC 0.02 10^3/ul; Eosinophil % 1.5 %; Lymphocyte % 34.4 %; Nucleated Red Blood Cells % 0.3 %/100WBC (0.0-0.8); RBC Morphology Normal (Normal)
[2024-05-18 10:23] VITALS: BP 129/88
== END 2024-05-18 13:40 | disposition home or self-care (01) ==
LOC: EDHOLD 16:29 → ED 16:29 → SUATTDRO 22:43 → MEDTELE 05-17 01:08
PROVIDERS: ADMIT Student in an Organized Health Care Education/Training Program; ATTEND Hospitalist